=== PATIENT | male | born 1995 | race Caucasian/White ===

== ENCOUNTER 2025-03-15 18:36 | Emergency (ER) | payer OTHER, SELFPAY ==
[2025-03-15 18:36] VITALS: BP 128/80; PULSE 84; RESP 16; TEMP 36.4; O2SAT 99; BMI 31.8
--- NOTE | 2025-03-15 18:58 | EDS_ITS ---
HPI History of Present Illness HPI Narrative: Patient presents with pain in his right shoulder that began today while he was at work. Patient states he was lifting something over his head. Patient states it was heavy. Patient states he felt something pull in his right shoulder. Patient states that the pain is over the anterior aspect of the right shoulder/chest area. Patient describes his pain as aching. Patient states it is worse with certain movements. Patient states it is better with rest. Patient also admits to some numbness and tingling down his right arm into his pinky finger. Patient states that his entire hand becomes numb and tingly with certain movements. 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 Comment: Lifting Onset/Context/Timing Onset: Today Context: Sudden Onset Timing: Continuous Quality of Pain: Aching Location: Right shoulder Worsened by: Movement Relieved by: Rest Associated Symptoms Associated Symptoms: Positive for Parasthesia; Negative for Weakness or Loss of Funtion PFSH PFSH Medical History no medical history no medical history Home Medications ?Medication ?Instructions ?Recorded ?Last Taken ?Type naproxen 500 mg tablet 500 mg PO BID PRN #20 tabs 1 05/15/24 Unknown Rx Allergy/AdvReac Type Severity Reaction Status Date / Time No Known Allergies Allergy Verified 03/15/25 18:41 Surgical History no surgical history no surgical history Social History (Updated 03/15/25 @ 19:[address] Felix Campbell, DO) Smoking Status: Former smoker Electronic Cigarette Use: with nicotine ROS ROS ED Constitutional Constitutional ED: Denies chills or fever(s) Eyes Eyes: Denies blurry vision or change in vision ENT ENT ED: Denies rhinorrhea or sore throat Cardiovascular Cardiovascular: Denies chest pain or palpitations Respiratory/Chest Respiratory/Chest: Denies cough or dyspnea Gastrointestinal Gastrointestinal: Denies nausea or vomiting Genitourinary Genitourinary ED: Denies dysuria or hematuria Musculoskeletal Musculoskeletal: Denies back pain or neck pain Integumentary Denies abscess or rash Neurologic Neurologic: Reports paresthesias RUE; Denies headache(s) or weakness Allergic/Immunologic Allergic/Immunologic ED: Denies mouth swelling or urticaria EXAM Physical Exam Const Vital Signs: 03/15/25 18:36 Temperature 97.5 F L Temperature Source Temporal Pulse Rate 84 Respiratory Rate 16 Blood Pressure 128/80 H Blood Pressure Mean 96 Pulse Ox 99 Oxygen Delivery Method Room Air Positive well nourished and well developed General Appearance ED: well developed and NAD HEENT Reports moist mucous membranes normocephalic and atraumatic Neck full ROM and supple Neck Narrative: There is no tenderness over the midline cervical spine or paraspinal muscles. There is good range of motion. Spurling's test was negative. Extremity normal to inspection Extremity Narrative: There is tenderness to palpation over the anterior aspect of the right shoulder. There is no obvious deformity noted. Range of motion was slightly limited in all motions of the right shoulder secondary to pain. Strength is 5/5 in the radial, median, and ulnar areas. Sensation is intact to light touch in the radial, median, and ulnar areas. Radial pulses are equal bilaterally. Neuro oriented x3, CN's II-XII intact bilaterally, moves all extremities, no focal motor deficits and no sensory deficits noted Sensorium / Orientation: alert Motor Exam: strength 5/5 throughout Psych mental status grossly normal MDM MDM MDM Narrative Medical decision making narrative: Differential diagnosis includes dislocation, separation, muscle strain, and neuropraxia. X-rays of the right shoulder will be obtained to assess for separation and dislocation. Radiography Diagnostic Testing: X-rays of the right shoulder were obtained. There are 4 views. On my in dependent interpretation, there is no acute fracture or dislocation noted. There are some degenerative changes of the acromioclavicular joint. There is no separation noted. Radiologist also interpreted the x-rays and agrees. Treatment and Re-Evaluation Narrative: Patient was given a dose of Naprosyn here. Patient was advised of his findings. Patient was instructed use ice to the area. Patient was instructed to follow- up with his primary care physician in 5 to 7 days. Patient was instructed to return if worse in any way. Patient was given restrictions for work. Patient understood and was agreeable with the plan. All questions were answered. Discharge Plan Triage Chief Complaint: Upper Extremity Injury ED Provider: Felix Campbell Dx/Rx/DC Orders Clinical Impression: Right shoulder strain, Arm paresthesia, right Instructions: ED Shoulder Sprain, ED Paresthesia Prescriptions: New naproxen 500 mg tablet 500 mg PO BID PRN Qty: 20 0RF Stand Alone Forms: Work Status Form Primary Care Provider: Care Physician,No Primary Referrals: Care Physician,No Primary [Primary Care Provider, Medical] Clinic,NOW [Non-Staff, None] - 5-7 Days Print Language: Serbian Disposition Disposition: Home, Self Care
--- NOTE | 2025-03-15 19:05 | RAD_ITS ---
PROCEDURE: SHOULDER MIN 2 VIEWS 03/15/2025 REASON FOR EXAM: INJURY/PAIN TECHNIQUE: Procedure Code: RADSH Modality: DX Procedure: SHOULDER MIN 2 VIEWS Laterality: Right COMPARISON: None. FINDINGS: No acute fracture or dislocation. Preserved glenohumeral joint space. 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 No appreciable soft tissue swelling or unusual mineralization. RAD/Shoulder min 2 Views IMPRESSION: No acute fracture or dislocation. Mild AC joint arthrosis. Reading Location: [id number]
[2025-03-15 19:52] VITALS: BP 130/98; PULSE 78; RESP 16; TEMP 36.9; O2SAT 100
== END 2025-03-15 19:53 | disposition home or self-care (01) ==
PROVIDERS: Emergency Provider Emergency Medicine; Visit Provider Emergency Medicine
DX: S46.911A Strain of unspecified muscle, fascia and tendon at shoulder and upper arm level, right arm, initial encounter (principal); R20.2 Paresthesia of skin; Z87.891 Personal history of nicotine dependence; X58.XXXA Exposure to other specified factors, initial encounter
CPT/HCPCS: 73030; 99282

== ENCOUNTER 2025-03-16 18:07 | Emergency (ER) | payer OTHER, SELFPAY ==
[2025-03-16 18:08] VITALS: BP 124/79; PULSE 78; RESP 16; TEMP 37.1; O2SAT 98; BMI 31.7
[2025-03-16 20:07] VITALS: BP 120/73; PULSE 64; RESP 16
[2025-03-16 20:14] VITALS: BP 120/73; PULSE 64; RESP 16; TEMP 37.1; O2SAT 98
--- OUTSIDE RECORDS SUMMARY | 2025-03-16 20:15 | XMS RPT_ITS | CCD ---
Author Organization [facility] Inform ion Partnership [facility] Care Team Providers Care Site Safety Manager Name Role Phone Unavailable Primary Care Provider Unavailabl e Medications Completed/Discontinued Medications Medication Drug Class(es) Dates Sig (Normalized) Sig (Original) hydrocortisone 5 mg/ml topical cream (8 sources) Corticosteroid Start: 11-12-2022 hydrocortisone 0.5 % cream Apply to affected area twice daily. 56 g 0 11/12/2022 Active Start: 09-27-2020 hydrocortisone 1 % cream Apply to affected area twice daily. 20 g 0 09/27/2020 Active Comment on above: Apply to affected ar ea twice daily. ibuprofen 600 mg oral tablet (5 sources) Nonsteroidal Anti-inflammatory Drug Start: 08-31-2021 take 1 tablet by mouth every twelve hours as needed ibuprofen (MOTRIN) 600 mg tablet Take 1 tablet by mouth every 12 hours as needed for pain. 30 tablet 0 08/31/2021 Active Comment on above: Take 1 tablet by logan th every 12 hours as needed for pain. Problems Active Problems Problem Classification Problem Date Documented Da te Episodic/Chronic Other connective tissue disease (1 source) Peroneal tendinitis of right lower limb; Translations: [Peroneal tendinitis, right leg] Episodic Other non-traumatic joint disorders (1 source) Acute ankle pain; Translations: [Pain in right ankle and joints of right foot] Episodic Past or Other Problems Problem Classification Problem Date Documented Da te Episodic/Chronic Sprains and strains (9 sources) Low back strain; Translations: [Strain of muscle, fascia and tendon of lower back, initial encounter] Onset: 05-18-2014 05-18-2014 Episodic Results Test Name Value Interpretation Reference Range Facility [facility] 04-26-2024 [facility] HNO ID: [id number] Author: TOMASA OBANDO Tech Service: ? Author Type: Clinical Documentation Nurse Type: [facility] Filed: 04/26/2024 14:06 Note Text: Radiology Service Progress Note PATIENT NAME: Josselin Crockett DATE OF SERVICE: April 26, 2024 TIME: 2:06 PM PATIENT IDENTITY VERIFICATION COMPLETED USING TWO (2) IDENTIFIERS: Name and Date of confirmed by patient verbally. FALL SCREENING: Has the patient had 2 falls in the last year or 1 fall with injury or currently using an Ambulatory Assistive Device (Walker, Cane, Wheelchair, Crutches, etc.)? No PATIENT GENDER DATA: Male PATIENT RELEVANT IMPLANT DATA REVIEWED: Not Applicable PATIENT PRESENTS WITH AN IMPLANTABLE OR ATTACHED HVAC SERVICE TECH: No RADIOLOGY DEPARTMENT: General X-ray: Exam(s) Completed: Chest X-Ray PERIPHERAL IV DATA: Not applicable SIGNED BY: Todd Evans April 26, 2024 2:[address] [facility] CBC W Auto Differential pane l (Bld)on 04-26-2024 Basophils (Bld) [#/Vol] 0.03 10*3/uL Normal <0.11 [facility] Comment on above: Order Comment: Speci sonido Type: BLOOD SPECIMEN Ordering Facility: [facility] Address: [address] [place] [address] Performed By: #### 5 7021-8 #### [facility] CLIA [id number] [address] [place] [address] [place] Basophils/100 WBC (Bld) 0.5 % Normal [facility] Comment on above: Order Comment: Specdiamond head Type: BLOOD SPECIMEN Ordering Facility: [facility] Address: [address] [place] [address] Performed By: #### 5 7021-8 #### [facility] CLIA [id number] [address] [place] [address] [place] Differential cell count method Nom (Bld) Auto Normal [facility] Comment on above: Order Comment: Olimpiai sonido Type: BLOOD SPECIMEN Ordering Facility: [facility] Address: [address] [place] [address] Performed By: #### 5 7021-8 #### [facility] CLIA [id number] [address] [place] [address] [place] Eosinophils (Bld) [#/Vol] 0.03 10*3/uL Normal <0.46 [facility] Comment on above: Order Comment: Speci men Type: BLOOD SPECIMEN Ordering Facility: [facility] Address: [address] [place] [address] Performed By: #### 5 7021-8 #### [facility] CLIA [id number] [address] Eosinophils/100 WBC (Bld) 0.5 % Normal [facility] Comment on above: Order Comment: Speci men Type: BLOOD SPECIMEN Ordering Facility: [facility] Address: [address] [place] [address] Performed By: #### 5 7021-8 #### [facility] CLIA [id number] [address] Erythrocyte distribution width (RBC) [Ratio] 12.9 % Normal 11.5-15.0 [facility] Comment on above: Order Comment: Speci men Type: BLOOD SPECIMEN Ordering Facility: [facility] Address: [address] [place] [address] Performed By: #### 5 7021-8 #### [facility] CLIA [id number] [address] Hematocrit (Bld) [Volume fraction] 44.8 % Normal 39.0-51.0 [facility] Comment on above: Order Comment: Speci men Type: BLOOD SPECIMEN Ordering Facility: [facility] Address: [address] [place] [address] Performed By: #### 5 7021-8 #### [facility] CLIA [id number] [address] Hemoglobin (Bld) [Mass/Vol] 15.1 g/dL Normal 13.0-17.0 [facility] Comment on above: Order Comment: Speci men Type: BLOOD SPECIMEN Ordering Facility: [facility] Address: [address] [place] [address] Performed By: #### 5 7021-8 #### [facility] CLIA [id number] [address] [place] Immature granulocytes (Bld) [#/Vol] 10*3/uL Normal <0.10 [facility] Comment on above: Order Comment: Speci men Type: BLOOD SPECIMEN Ordering Facility: [facility] Address: [address] [place] [address] Performed By: #### 5 7021-8 #### [facility] CLIA [id number] [address] [place] Immature granulocytes/100 WBC (Bld) 0.2 % Normal [facility] Comment on above: Order Comment: Speci men Type: BLOOD SPECIMEN Ordering Facility: [facility] Address: [address] [place] [address] Performed By: #### 5 7021-8 #### [facility] CLIA [id number] [address] Lymphocytes (Bld) [#/Vol] 1.40 10*3/uL Normal 1.00-4.00 [facility] Comment on above: Order Comment: Speci men Type: BLOOD SPECIMEN Ordering Facility: [facility] Address: [address] [place] [address] Performed By: #### 5 7021-8 #### [facility] CLIA [id number] [address] Lymphocytes/100 WBC (Bld) 25.3 % Normal [facility] Comment on above: Order Comment: Speci men Type: BLOOD SPECIMEN Ordering Facility: [facility] Address: [address] [place] [address] Performed By: #### 5 7021-8 #### [facility] CLIA [id number] [address] MCH (RBC) [Entitic mass] 30.6 pg Normal 26.0-34.0 [facility] Comment on above: Order Comment: Speci men Type: BLOOD SPECIMEN Ordering Facility: [facility] Address: [address] [place] [address] Performed By: #### 5 7021-8 #### [facility] CLIA [id number] [address] [place] MCHC (RBC) [Mass/Vol] 33.7 g/dL Normal 30.5-36.0 [facility] Comment on above: Order Comment: Speci men Type: BLOOD SPECIMEN Ordering Facility: [facility] Address: [address] [place] [address] Performed By: #### 5 7021-8 #### [facility] CLIA [id number] [address] [place] [address] [place] MCV (RBC) [Entitic vol] 90.7 fL Normal 80.0-100.0 [facility] Comment on above: Order Comment: Speci men Type: BLOOD SPECIMEN Ordering Facility: [facility] Address: [address] [place] [address] Performed By: #### 5 7021-8 #### [facility] CLIA [id number] [address] [place] Monocytes (Bld) [#/Vol] 0.51 10*3/uL Normal <0.87 [facility] Comment on above: Order Comment: Speci men Type: BLOOD SPECIMEN Ordering Facility: [facility] Address: [address] [place] [address] Performed By: #### 5 7021-8 #### [facility] CLIA [id number] [address] Monocytes/100 WBC (Bld) 9.2 % Normal [facility] Comment on above: Order Comment: Speci men Type: BLOOD SPECIMEN Ordering Facility: [facility] Address: [address] [place] [address] Performed By: #### 5 7021-8 #### [facility] CLIA [id number] [address] [place] [address] [place] Neutrophils (Bld) [#/Vol] 3.55 10*3/uL Normal 1.45-7.50 [facility] Comment on above: Order Comment: Speci men Type: BLOOD SPECIMEN Ordering Facility: [facility] Address: [address] [place] [address] Performed By: #### 5 7021-8 #### [facility] CLIA [id number] [address] [place] Neutrophils/100 WBC (Bld) 64.3 % Normal [facility] Comment on above: Order Comment: Speci men Type: BLOOD SPECIMEN Ordering Facility: [facility] Address: [address] [place] [address] Performed By: #### 5 7021-8 #### [facility] CLIA [id number] [address] [place] Nucleated RBC (Bld) [#/Vol] 10*3/uL Normal <0.01 [facility] Comment on above: Order Comment: Speci men Type: BLOOD SPECIMEN Ordering Facility: [facility] Address: [address] [place] [address] Performed By: #### 5 7021-8 #### [facility] CLIA [id number] [address] Nucleated RBC/100 WBC (Bld) [Ratio] 0.0 /100 WBC Normal [facility] Comment on above: Order Comment: Speci men Type: BLOOD SPECIMEN Ordering Facility: [facility] Address: [address] [place] [address] Performed By: #### 5 7021-8 #### [facility] CLIA [id number] [address] [place] Platelet mean volume (Bld) [Entitic vol] 10.5 fL Normal 9.0-12.7 [facility] Comment on above: Order Comment: Speci men Type: BLOOD SPECIMEN Ordering Facility: [facility] Address: [address] [place] [address] Performed By: #### 5 7021-8 #### [facility] CLIA [id number] [address] [place] Platelets (Bld) [#/Vol] 208 10*3/uL Normal 150-400 [facility] Comment on above: Order Comment: Speci men Type: BLOOD SPECIMEN Ordering Facility: [facility] Address: [address] [place] [address] Performed By: #### 5 7021-8 #### [facility] CLIA [id number] [address] [place] [address] [place] [facility] [place] RBC (Bld) [#/Vol] 4.94 10*6/uL Normal 4.20-6.00 [facility] Comment on above: Order Comment: Speci men Type: BLOOD SPECIMEN Ordering Facility: [facility] Address: [address] [place] [address] Performed By: #### 5 7021-8 #### [facility] CLIA [id number] [address] STATES OF [facility] WBC (Bld) [#/Vol] 5.53 10*3/uL Normal 3.70-11.00 [facility] Comment on above: Order Comment: Speci men Type: BLOOD SPECIMEN Ordering Facility: [facility] Address: [address] [place] [address] Performed By: #### 5 7021-8 #### [facility] CLIA [id number] [address] OF [facility] Comprehensive metabolic 2000 panelon 04-26-2024 Albumin [Mass/Vol] 4.4 g/dL Normal 3.9-4.9 [facility] Comment on above: Order Comment: Speci men Type: BLOOD SPECIMEN Ordering Facility: [facility] Address: [address] [place] [address] Performed By: #### 2 4323-8, [id number] #### [facility] CLIA [id number] [address] [place] ALP [Catalytic activity/Vol] 70 U/L Normal 38-113 [facility] Comment on above: Order Comment: Speci men Type: BLOOD SPECIMEN Ordering Facility: [facility] Address: [address] [place] [address] Performed By: #### 2 4323-8, [id number] #### [facility] CLIA [id number] [address] ALT [Catalytic activity/Vol] 13 U/L Normal 10-54 [facility] Comment on above: Order Comment: Speci men Type: BLOOD SPECIMEN Ordering Facility: [facility] Address: [facility] [place] [address] Performed By: #### 2 4323-8, [id number] #### [facility] CLIA [id number] [address] [place] [address] [place] Anion gap [Moles/Vol] 6 mmol/L Low 8-15 [facility] Comment on above: Order Comment: Speci men Type: BLOOD SPECIMEN Ordering Facility: [facility] Address: [address] [place] [address] Performed By: #### 2 4323-8, [id number] #### [facility] CLIA [id number] [address] [place] [address] [place] AST [Catalytic activity/Vol] 15 U/L Normal 14-40 [facility] Comment on above: Order Comment: Speci men Type: BLOOD SPECIMEN Ordering Facility: [facility] Address: [address] [place] [address] Performed By: #### 2 4323-8, [id number] #### [facility] CLIA [id number] [address] [place] [address] [place] Bilirubin [Mass/Vol] 0.5 mg/dL Normal 0.2-1.3 [facility] Comment on above: Order Comment: Speci men Type: BLOOD SPECIMEN Ordering Facility: [facility] Address: [address] [place] [address] Performed By: #### 2 4323-8, [id number] #### [facility] CLIA [id number] [address] [place] Calcium [Mass/Vol] 9.2 mg/dL Normal 8.5-10.2 [facility] Comment on above: Order Comment: Speci men Type: BLOOD SPECIMEN Ordering Facility: [facility] Address: [address] [place] [address] Performed By: #### 2 4323-8, [id number] #### [facility] CLIA [id number] [address] [place] [address] [place] Chloride [Moles/Vol] 101 mmol/L Normal 98-107 [facility] Comment on above: Order Comment: Speci men Type: BLOOD SPECIMEN Ordering Facility: [facility] Address: [address] [place] [address] Performed By: #### 2 4323-8, [id number] #### [facility] CLIA [id number] [address] [place] [address] [place] CO2 [Moles/Vol] 29 mmol/L Normal 22-30 [facility] Comment on above: Order Comment: Radha head Type: BLOOD SPECIMEN Ordering Facility: [facility] Address: [address] [place] [address] Performed By: #### 2 4323-8, [id number] #### [facility] CLIA [id number] [address] [place] [address] [place] Creatinine [Mass/Vol] 0.75 mg/dL Normal 0.73-1.22 [facility] Comment on above: Order Comment: Olimpiai men Type: BLOOD SPECIMEN Ordering Facility: [facility] Address: [address] [place] [address] Performed By: #### 2 4323-8, [id number] #### [facility] CLIA [id number] [address] Creatinine and Glomerular filtration rate.predicted panel (S/P/Bld) 125 mL/min/1.73m??? Normal >=60 [facility] Comment on above: Order Comment: Speci men Type: BLOOD SPECIMEN Ordering Facility: [facility] Address: [address] [place] [address] Result Comment: Fouzia mated Glomerular Filtration Rate (eGFR) is calculated using the 2020 CKD-EPI creatinine equation. This equation utilizes serum creatinine, sex, and age as parameters. The creatinine assay has traceable calibration to isotope dilution-mass spectrometry. Refer to KDIGO guidelines for clinical interpretation. In patients with unstable renal function, e.g. those with acute kidney injury, the eGFR may not accurately reflect actual GFR. Performed By: #### 2 4323-8, [id number] #### [facility] CLIA [id number] [address] [place] Glucose [Mass/Vol] 99 mg/dL Normal 74-99 [facility] Comment on above: Order Comment: Rahda head Type: BLOOD SPECIMEN Ordering Facility: [facility] Address: [address] [place] [address] Result Comment: The [place] [employer] (ADA) provides guidance for cutoff values for fasting glucose and random glucose. The ADA defines fasting as no caloric intake for at least 8 hours. Fasting plasma glucose results between 100 to 125 mg/dL indicate increased risk for diabetes (prediabetes). Fasting plasma glucose results greater than or equal to 126 mg/dL meet the criteria for diagnosis of diabetes. In the absence of unequivocal hyperglycemia, results should be confirmed by repeat testing. In a patient with classic symptoms of hyperglycemia or hyperglycemic crisis, random plasma glucose results greater than or equal to 200 mg/dL meet the criteria for diagnosis of diabetes. Reference: Standards of Medical Care in Diabetes 2016, [place] [employer]. Diabetes Care. 2016.39(Suppl 1). Performed By: #### 2 4323-8, [id number] #### [facility] CLIA [id number] [address] [place] [address] [place] Potassium [Moles/Vol] 4.6 mmol/L Normal 3.7-5.1 [facility] Comment on above: Order Comment: Radha head Type: BLOOD SPECIMEN Ordering Facility: [facility] Address: [address] [place] [address] Performed By: #### 2 4323-8, [id number] #### [facility] CLIA [id number] [address] [place] [address] [place] Protein [Mass/Vol] 7.0 g/dL Normal 6.3-8.0 [facility] Comment on above: Order Comment: Radha head Type: BLOOD SPECIMEN Ordering Facility: [facility] Address: [address] [place] [address] Performed By: #### 2 4323-8, [id number] #### [facility] CLIA [id number] [address] [place] [address] [place] Sodium [Moles/Vol] 136 mmol/L Normal 136-144 [facility] Comment on above: Order Comment: Radha head Type: BLOOD SPECIMEN Ordering Facility: [facility] Address: [address] [place] [address] Performed By: #### 2 4323-8, [id number] #### [facility] CLIA [id number] [address] [place] [address] [place] Urea nitrogen [Mass/Vol] 10 mg/dL Normal 9-24 [facility] Comment on above: Order Comment: Specdiamond head Type: BLOOD SPECIMEN Ordering Facility: [facility] Address: [address] [place] [address] Performed By: #### 2 4323-8, [id number] #### [facility] CLIA [id number] [address] D dimer FEU PPP-mCncon 04-26 Fibrin D-dimer FEU (PPP) [Mass/Vol] <190 Normal <500 [facility] Comment on above: Order Comment: Specdiamond head Type: BLOOD SPECIMEN Ordering Facility: [facility] Address: [address] [place] [address] Performed By: #### 4 8065-7 #### [facility] CLIA [id number] [address] ED NOTEon 04-26-2024 ED NOTE HNO ID: [id number] Author: RAGINI HENSLEY RN Service: ? Author Type: Registered Nurse Type: ED Notes Filed: 04/26/2024 15:04 Note Text: pt given dc instructions and follow up care he verbalized understanding. Normal [facility] ED PROV NOTEon 04-26-2024 ED PROV NOTE HNO ID: [id number] Author: GEMA RANKIN MD Service: ? Author Type: Physician Type: ED Provider Notes Filed: 04/26/2024 14:52 Note Text: ED Provider Note Patient Name: Josselin Crockett : 1995 SERVICE DATE: 04/26/24 History Patient presents with: Chest Pain: for the past 4 days Patient is a 28-year-old male coming in with chest pain. Is been going on for the last 4 days. He describes it is coming and going mainly in his mid chest to left chest. He denies it worse with deep inspiration. He denies any fevers or chills or cough. He is never had anything like this before. Denies any leg swelling or recent travel. Denies any cardiac history. No past medical history on file. No past surgical history on file. FAMILY HISTORY Problem Relation Age of Onset other (Iron Deficiency Anemia [Other]) Mother Social History Tobacco Use Smoking status: Former Current packs/day: 1.00 Types: Cigarettes Smokeless tobacco: Never Vaping Use Vaping status: current everyday user Substances: Nicotine Substance and Sexual Activity Alcohol use: Yes Comment: occasionaly Drug use: No Sexual activity: Not on file ALLERGIES No Known Allergies Review of Systems Constitutional: Negative for fever. Respiratory: Negative for shortness of breath. Cardiovascular: Positive for chest pain. Gastrointestinal: Negative for vomiting. All other systems reviewed and are negative. Physical Exam Vitals [04/26/24 1240] BP Pulse Temp Temp src Resp SpO2 Weight Height 135/77 67 36.6 ?C (97.8 ?F) Temporal 18 97 % 106.6 kg (235 lb) -- Physical Exam Vitals reviewed. Constitutional: General: He is not in acute distress. Appearance: He is not ill-appearing. HENT: Head: Normocephalic. Mouth/Throat: Mouth: Mucous membranes are moist. Cardiovascular: Rate and Rhythm: Normal rate and regular rhythm. Pulmonary: Effort: Pulmonary effort is normal. Breath sounds: Normal breath sounds. Abdominal: Palpations: Abdomen is soft. Tenderness: There is no abdominal tenderness. There is no guarding or rebound. Musculoskeletal: General: No swelling or tenderness. Cervical back: Neck supple. Skin: General: Skin is warm. Neurological: General: No focal deficit present. Mental Status: He is alert. Psychiatric: Mood and Affect: Mood normal. Diagnostic Testing ED Labs Ordered and Reviewed COMPREHENSIVE METABOLIC PANEL - Abnormal; Notable for the following components: Result Value Ref Range Anion Gap 6 (*) 8 - 15 mmol/L All other components within normal limits HIGH SENSITIVITY TROPONIN T (INITIAL) - Normal D-DIMER - Normal Narrative: 500 ng/mL FEU is the D Dimer cutoff to exclude DVT (deep vein thrombosis) and PE (pulmonary embolism) in patients with a low pre test probability. Supplemental Comment: In patients over 50 years with a low pre test probability for DVT and/or PE, an age adjusted D dimer cutoff can be calculated as [age x 10] ng/mL FEU. For example, a patient of 88 years would have an age adjusted D dimer cutoff of 880 ng/mL FEU. For patients with a suspected DVT, a D dimer level below 500 ng/mL FEU has a negative predictive value of >98.9%, a sensitivity of >96.9% and a specificity of >35.7%. For patients with a suspected PE, a D dimer level below 500 ng/mL FEU has a negative predictive value of >98.5%, and a sensitivity of >96.5% and a specificity of >38.8%. Reference: Fabian M, et al. ADIN 2014 311:1117 and Raleigh Mathews N et al. Kelsi Int Med 2016 165:253. COMPLETE BLOOD COUNT AND DIFFERENTIAL HIGH SENSITIVITY TROPONIN T (SECOND) Procedures ED Course / Clinical Impression Clinical Impressions as of 04/26/24 1451 Chest pain, unspecified type Chest wall pain MDM / Disposition / Plan EKG shows normal sinus rhythm rate of [address]. Patient had basic labs including 2 high-sensitivity troponins are within normal limits. 38 potassium are normal. White blood cell count hemoglobin platelets are normal. D-dimer is less than 190. X-ray shows no acute radiographic abnormality. At this point I am comfortable the patient being discharged home. Unclear cause of chest pain however vital signs are stable and labs and imaging are all within normal limits and this point will be discharged home. Is advised to follow with primary care and return with any worsening symptoms or concerns Differential Diagnoses - Chest pain NOS - PE Less likely because: D-dimer negative - ACS Less likely because: no evidence of ACS based on cardiac biomarkers and EKG without ischemia - Pneumothorax Less likely because: bilateral breath sounds and CXR without PTX - Pneumonia Less likely because: lungs clear to auscultation and CXR without infiltrate Additional complaint based differentials considered: pulmonary embolism, ACS, pneumothorax, pneumonia Disposition The patient was discharged. Counseled patient regardin (more content not included)... Normal [facility] EKGon 04-26-2024 Electrocardiogram Ventricular Rate : 6 8 BPM Atrial Rate : 68 BPM P-R Interval : 114 ms QRS Duration : 98 ms Q-T Interval : 364 ms QTC Calculation(Bazett) : 387 ms Calculated P [place] : 66 degrees Calculated R [place] : -6 degrees Calculated T [place] : 6 degrees SINUS RHYTHM WITH MARKED SINUS ARRHYTHMIA OTHERWISE NORMAL ECG NO STEMI Confirmed by GEMA RANKIN MD ([id number]), scientific editor ANGELA MCELROY ([id number]) on 05/12/2024 8:53:25 AM NAME : JOSSELIN CROCKETT PID : [id number] : 1995 Gender : Male Race : ORD : Procedure Date : Apr 26 2024 12:40:16 Edit Date : May 12 2024 08:53:31 Diagnosis: SINUS RHYTHM WITH MARKED SINUS ARRHYTHMIA OTHERWISE NORMAL ECG NO STEMI Confirmed by GEMA RANKIN MD ([id number]), scientific editor ANGELA MCELROY ([id number]) on 05/12/2024 8:53:25 AM Test Reason : Location : 1 : ER ED Overread By : GEMA RANKIN MD Edited By : ANGELA MCELROY Referred By : , Acquired by : TK, Normal [facility] HIGH SENSITIVITY TROPONIN T (INITIAL)on 04-26-2024 Troponin T.cardiac High sensitivity method [Mass/Vol] <6 Normal <12 [facility] Comment on above: Order Comment: Radha head Type: BLOOD SPECIMEN Ordering Facility: [facility] Address: [address] [place] [address] Performed By: #### 2 [id number], [id number] #### [facility] CLIA [id number] [address] HIGH SENSITIVITY TROPONIN T (SECOND)on 04-26-2024 Troponin T.cardiac High sensitivity method [Mass/Vol] 7 ng/L Normal <12 [facility] Comment on above: Order Comment: Radha head Type: BLOOD SPECIMEN Ordering Facility: [facility] Address: [address] [place] [address] Performed By: #### L [id number] #### [facility] CLIA [id number] [address] XR CHEST 2V FRONTAL/LATon XR CHEST 2V FRONTAL/LAT * * *Final Report* * * DATE OF EXAM: Apr 26 2024 2:05PM MDX [id number] - XR CHEST 2V FRONTAL/LAT / PROCEDURE REASON: Chest Pain * * * * Physician Interpretation * * * * EXAMINATION: CHEST RADIOGRAPH (2 VIEW FRONTAL and LATERAL) CLINICAL HISTORY: Chest Pain MQ: [id number] EXAM DATE/TIME: 04/26/2024 2:05 PM COMPARISON: 05/13/2020 RESULT: Lines, tubes, and devices: None. Lungs and pleura: No consolidation. No lung mass. No pleural effusion. No pneumothorax. Cardiomediastinal silhouette: Normal cardiomediastinal silhouette. Bones and soft tissues: Unremarkable. IMPRESSION: No acute radiographic abnormality. Industrial Service Technician: YOLANDA Transcribe Date/Time: Apr 26 2024 2:07P Dictated by : TEGAN MICHELLE MD This examination was interpreted and the report reviewed and electronically signed by: TEGAN MICHELLE MD on Apr 26 2024 2:07PM EST [id number] [facility] 09-09-2021 [facility] Telephone (ORMDNA) JOSSELIN CROCKETT ([id number]) 1995 M Date Time Provider Department 09/09/21 BRANDEN BERNARD During your visit today, we recorded the following information about you: Savannah Marcum 09/09/2021 10:40 AM Signed Patient is calling stating he is having more pain, swelling has gone down but is having a radiating pain from his ankle into his knee (going up his leg). He has been icing it and using the boot, but when he sleeps at night the pain radiating into his knee is very bad and waking him up throughout the night. Please advise the next step. Josselin can be reached at . Thanks! Monet Vann RN 09/09/2021 10:41 AM Signed Per OV 09/03/21, MRI would be recommended if pt was still presenting with any issues Can this be ordered? Monet Vann RN 09/09/2021 10:50 AM Signed Done Branden Bernard, DO PSS Please call pt and advised MRI is ordered and help with appt Savannah Marcum 09/09/2021 11:15 AM Signed MRI and follow up appointment have been scheduled for patient. Thank you! Allergies As of Date: 09/09/2021 (No Known Allergies) Date Reviewed: 09/03/2021 Reviewed by: Branden Bernard DO - Fully Assessed Reason for Visit: Patient Update [1234] Prescriptions as of 09/09/2021 - ibuprofen (MOTRIN) 600 mg tablet Take 1 tablet by mouth every 12 hours as needed for pain. - hydrocortisone 1 % cream Apply to affected area twice daily. Meds Comments as of 10/06/2019: Pt sts no daily medications Problem List As Of Date 09/09/2021 Noted Resolved Lumbar strain [S39.012A] 05/18/2014 Encounter Status:Closed by SAVANNAH MARCUM on 09/09/21 [facility] CNCOon 09-03-2021 CNCO Letter Text [facility] CNOVon 09-03-2021 CNOV Office Visit (CORNELIUSNA ) STEPHANIEHUMBERTOJOSSELIN Rita ([id number]) 1995 M Date Time Provider Department 09/03/21 11:00 AM BRANDEN EBRNARD During your visit today, we recorded the following information about you: Branden Bernard DO 09/10/2021 12:39 PM Signed Reason for Visit/Chief Complaint Josselin Crockett is a 25 year old male who presents today for a new evaluation of following complaint: Patient presents with: Right Ankle - New, Pain History of Present Illness: PAIN EVALUATION 09/03/2021 1116 Pain Level: 6 Pain Location: Ankle-Right Description: Aching;Dull;Radiating; Throbbing;Other: See comment radiates to knee Duration Amount of Time: 3 Duration Units: Days Frequency: Continuous Intervention/Comfort measure: Relaxation;Reposition; Cold;Medication;Other: See comment ibuprofen, jaquan wrap HPI: Josselin Crockett is a 25 year old male presenting today with right ankle pain. Patient rolled his ankle 3 days ago playing basketball , went to er and they place in ankle brace unable to wear with shoe, and is having continued pain and swelling. Pain history is noted as above. Denies calf pain, numbness, tingling, fever, chills or other constitutional symptoms. Works in [employer]. Has sprained injury in the past, but didn't get looked at until this past weekend. Previous Treatments: Ice: Yes Heat: No Brace: No NSAIDs: Yes, ibuprofen Injections: No Surgeries: No Physical Therapy: No Review of Systems: Patient did not have, and does not currently have, any weight loss, malaise, fever, chills, headache, chest pain, chest pressure, palpitations, cough, shortness of breath, orthopnea, paroxsymal nocturnal dyspnea, nausea, vomiting, diarrhea, constipation, melena, hematochezia, urinary difficulties, prolonged bleeding, easily bruising, heat or cold intolerance, new onset joint pain or swelling, new onset extremity weakness or numbness, new onset auditory or visual disturbances, lightheadedness, dizziness, partial loss of consciousness or full loss of consciousness. Current Outpatient Medications on File Prior to Visit Medication Sig - ibuprofen (MOTRIN) 600 mg tablet Take 1 tablet by mouth every 12 hours as needed for pain. - hydrocortisone 1 % cream Apply to affected area twice daily. No current facility-administered medications on file prior to visit. ALLERGIES No Known Allergies Physical Exam: Vitals: There were no vitals taken for this visit. Psych: Pleasant, good affect and mood General Appearance: Well appearing, alert, in no acute distress, well-hydrated, well nourished.. Skin: Skin color, texture, turgor normal, no suspicious rashes or lesions. Peripheral Pulses: Normal. Neurologic: Gait normal. Reflexes normal and symmetric. Sensation grossly intact.. Lymph Nodes: No cervical lymphadenopathy, No supraclavicular lymphadenopathy, No axillary lymphadenopathy. and No inguinal lymphadenopathy.. Respiratory: No recent pulmonary infection, hemoptysis, chronic cough, or shortness of breath at rest Rheumatologic: Joint deformities: right ankle pain Right Ankle Exam Tenderness The patient is experiencing tenderness in the ATF. Swelling: moderate Range of Motion Dorsiflexion: normal Plantar flexion: normal Eversion: normal Inversion: normal Muscle Strength Dorsiflexion: 5/5 Plantar flexion: 5/5 Anterior tibial: 5/5 Posterior tibial: 5/5 Gastrocsoleus: 5/5 Peroneal muscle: 5/5 Tests Anterior drawer: 2+ Varus tilt: negative Other Erythema: absent Sensation: normal Pulse: present Left Ankle Exam Left ankle exam is normal. Tenderness The patient is experiencing no tenderness. Range of Motion The patient has normal left ankle ROM. Dorsiflexion: normal Plantar flexion: normal Eversion: normal Inversion: normal Muscle Strength Dorsiflexion: 5/5 Plantar flexion: 5/5 Anterior tibial: 5/5 Posterior tibial: 5/5 Gastrocsoleus: 5/5 Peroneal muscle: 5/5 Tests Anterior drawer: negative Varus tilt: negative Other Erythema: absent Sensation: normal Pulse: present Imaging: Last XR Ankle - Impression Only XR ANKLE GENERAL 3V AP/LAT/OBL RIGHT Exam End: 08/31/2021 9:48 PM (Final result) Impression: IMPRESSION: No acute osseous abnormality identified Soft tissue swelling Industrial Service Technician: YOLANDA ... Complete Results Assessment and Plan: Impression: No diagnosis found. Plan: Elevate, nsaids, compression Apply ice Cam boot PT Follow up in 2 weeks If still having issues would order MRI Patient aware and in agreement of plan. All questions answered. Out of work note for 2 weeks and reeval at that time Today, in detail, through a thorough evaluation, we discussed possible etiologies of pain and our plans for further diagnostic and therapeutic interventions. We discussed strategies for decreasing pain (more content not included)... Normal [facility] No Panel Informationon 09-03 [facility] ED NOTEon 09-01-2021 ED NOTE HNO ID: [id number] Author: Ree Fernandez RN Service: Emergency Medicine Author Type: Registered Nurse Type: ED Notes Filed: 08/31/2021 10:11 PM Note Text: Pt is A/Ox3, per Sharath WYANE pt condition is improved and stable for discharge. Pt speech is clear and coherent with pt speaking in full sentences. Pt respirations are even, non labored and no use of accessory muscles noted. Verbal and written D/c instructions reviewed with pt. Pt verbalized understanding of diagnosis, treatment, importance of follow-up with PCP. Pt instructed to return to ED as needed for persistent or worsening symptoms or any new concerns. Pt is leaving ambulatory with crutches and air cast,a steady gait and all belongings with him accompanied by his brother. Normal [facility] ED NOTEon 08-31-2021 ED NOTE HNO ID: [id number] Author: Jennifer Ortiz RN Service: Emergency Medicine Author Type: Registered Nurse Type: ED Notes Filed: 08/31/2021 9:14 PM Note Text: Pt states that he rolled his right ankle 1 hour ago while playing basketball. Swelling noted. Pt states that the pain is shooting up his leg. Ice given but states it makes the pain worse. Pt did not take anything for pain HIV COUNSELOR Normal [facility] ED PROV NOTEon 08-31-2021 ED PROV NOTE HNO ID: [id number] Author: Sharath Gee PA-C Service: Emergency Medicine Author Type: Physician Child Therapist Type: ED Provider Notes Filed: 08/31/2021 10:07 PM Note Text: [facility] EM[facility] DEPARTMENT ENCOUnter Pt Name: Josselin Crockett Birthdate 1995 Date of evaluation: 08/31/2021 Provider: Sharath Gee MS, PA-C CHIEF COMPLAINT chief complaint Right ankle injury HISTORY OF PRESENT ILLNESS (Location/Symptom, Timing/Onset, Context/Setting, Quality, Duration, Modifying Factors, Severity) Note limiting factors. HPI Josselin Crockett is a 25 year old male who presents to the emergency department with complaint of right ankle injury. He says somebody stepped on his foot and the rolled his ankle, shows me the lateral aspect of the right ankle where there is soft tissue swelling. He is focally tender there but also does radiate proximally with use, better with rest. Pain scale 5 out of 10. Describes a sharp. He reports having other previous ankle injuries although does not believe he is ever had a fracture but not sure. No relevant personal or family past medical history. The patient is a smoker. I have reviewed the patient's personal and family past medical history as well as the nurse's notes and I agree. Personal history and family past medical history as listed in this chart. I have reviewed the patient's vitals and agree. REVIEW OF SYSTEMS (2+ for level 4; 10+ for level 5) Review of Systems This patient's personal and family past medical history as stated in HPI and otherwise unremarkable. ROS as stated in HPI otherwise unremarkable, a total of 10 systems reviewed. PAST MEDICAL HISTORY History reviewed. No pertinent past medical history. SURGICAL HISTORY History reviewed. No pertinent surgical history. CURRENT MEDICATIONS Previous Medications HYDROCORTISONE 1 % CREAM Apply to affected area twice daily. ALLERGIES Patient has no known allergies. FAMILY HISTORY FAMILY HISTORY Problem Relation Age of Onset - other (Iron Deficiency Anemia [Other]) Mother SOCIAL HISTORY Social History Tobacco Use - Smoking status: Current Every Day Smoker Packs/day: 1.00 Types: Cigarettes - Smokeless tobacco: Never Used Vaping Use - Vaping Use: Never used Substance Use Topics - Alcohol use: Yes Comment: occasionaly - Drug use: No SCREENINGS PHYSICAL EXAM (up to 7 for level 4, 8 or more for level 5) Physical Exam Constitutional: Patient is AAO x3, appears to be well-nourished and hydrated. Psych: Appropriate mood and affect for chief complaint. Patient is calm and pleasant. Integumentary: Skin intact, no erythema, is a hint of ecchymosis at the right lateral malleolus, skin is warm and dry. Neuro: Patient has sensation over the affected area as well as distally, no gross sensory or motor deficit. Vascular: Good dorsal pedis and posterior tibial pulses bilaterally. Respiratory: No tachypnea. Patient speaks in full sentences. Musculoskeletal: He has bony tenderness at the right lateral malleolus. No pain to the proximal tib-fib areas or to the right foot, no pain to the right medial malleolus. He is able to dorsi and plantarflex the toes and foot of the right lower extremity. Extremities: Skin is warm and dry. Soft tissue swelling at the right lateral malleolus. HENT: Head appears atraumatic and normocephalic. Trachea midline. Eyes: Conjunctivae are clear. Full extraocular eye movements intact. ? LABS: Labs Reviewed - No data to display All other labs were within normal range or not returned as of this dictation. EMERGENCY DEPARTMENT COURSE: Vitals: 08/31/21 2114 BP: 132/65 Pulse: 86 Resp: 20 Temp: 37.2 ?C (98.9 ?F) TempSrc: Oral SpO2: 99% Weight: 93 kg (205 lb) Medications ibuprofen 600 mg tab(s) (MOTRIN) (has no administration in time range) MDM The patient came here with complaint of a right ankle injury that occurred just before arrival. Initial exam suggests that the patient has right ankle pain and swelling laterally. Imaging shows: XR ANKLE GENERAL 3V AP/LAT/OBL RIGHT Result Date: 08/31/2021 * * *Final Report* * * DATE OF EXAM: Aug 31 2021 9:48PM [id number] - XR ANKLE 3V AP/LAT/OBL RT / PROCEDURE REASON: Ankle pain, initial exam * * * * Physician Interpretation * * * * EXAMINATION: XR ANKLE 3V AP/LAT/OBL RT CLINICAL HISTORY: Ankle pain, initial exam Technique: XR ANKLE 3V AP/LAT/OBL RT -- RIGHT with 3 views on 3 images Comparison: 12/08/2012 RESULT: No acute fracture or osseous lesions are identified. There are well-corticated ossific densities distal to the tip of the lateral malleolus which may represent sequelae of remote injury versus accessory ossicles. Ankle mortise is preserved. There is marked soft tissue swelling overlying the lateral malleolus. IMPRESSION: No acute osseous abnormality identified Soft tissue swelling Ferrer (more content not included)... Normal [facility] XR ANKLE 3V AP/LAT/OBL RTon 08-31-2021 XR ANKLE 3V AP/LAT/OBL RT * * *Final Report* * * DATE OF EXAM: Aug 31 2021 9:48PM [id number] - XR ANKLE 3V AP/LAT/OBL RT / PROCEDURE REASON: Ankle pain, initial exam * * * * Physician Interpretation * * * * EXAMINATION: XR ANKLE 3V AP/LAT/OBL RT CLINICAL HISTORY: Ankle pain, initial exam Technique: XR ANKLE 3V AP/LAT/OBL RT -- RIGHT with 3 views on 3 images Comparison: 12/08/2012 RESULT: No acute fracture or osseous lesions are identified. There are well-corticated ossific densities distal to the tip of the lateral malleolus which may represent sequelae of remote injury versus accessory ossicles. Ankle mortise is preserved. There is marked soft tissue swelling overlying the lateral malleolus. IMPRESSION: No acute osseous abnormality identified Soft tissue swelling Industrial Service Technician: [facility] Transcribe Date/Time: Aug 31 2021 9:50P Dictated by : ANGELA DUTTON MD This examination was interpreted and the report reviewed and electronically signed by: ANGELA DUTTON MD on Aug 31 2021 9:52PM EST [id number] Normal [facility] ED NOTEon 04-03-2021 ED NOTE HNO ID: [id number] Author: Sofi Goodson RRT Service: Respiratory Therapy Author Type: Registered Resp Therapist Type: ED Notes Filed: 04/03/2021 2:35 PM Note Text: Pt tripped and fell off his porch last night and landed on his left shoulder and heard a pop. Pt does not have full mobility in shoulder at this time. Normal [facility] ED PROV NOTEon 04-03-2021 ED PROV NOTE HNO ID: [id number] Author: Edelmira Banks PA-C Service: Emergency Medicine Author Type: Physician Child Therapist Type: ED Provider Notes Filed: 04/03/2021 5:53 PM Note Text: ED Provider Note Patient Name: Josselin Crockett SERVICE DATE: 04/03/21 History Patient presents with: Pain (Shoulder Pain): Left Fall 25 year old male presents to ED c/o left arm pain s/p fall. Pt states last night he tripped and fell off his porch, landing on his left shoulder. Pt heard a pop. Woke up today with worsening pain and difficulty moving his shoulder. Also noticed discomfort to his lower arm but denies injuring that. Pt is right hand dominant. History provided by: Patient and medical records History reviewed. No pertinent past medical history. History reviewed. No pertinent surgical history. FAMILY HISTORY Problem Relation Age of Onset - other (Iron Deficiency Anemia [Other]) Mother Social History Tobacco Use - Smoking status: Current Every Day Smoker Packs/day: 1.00 Types: Cigarettes - Smokeless tobacco: Never Used Vaping Use - Vaping Use: Never used Substance and Sexual Activity - Alcohol use: Yes Comment: occasionaly - Drug use: No - Sexual activity: Not on file ALLERGIES No Known Allergies Review of Systems Constitutional: Negative for chills and fever. HENT: Negative. Respiratory: Negative. Cardiovascular: Negative. Gastrointestinal: Negative. Musculoskeletal: Positive for arthralgias and myalgias. Skin: Negative. Neurological: Negative. Hematological: Negative. Psychiatric/Behavioral : Negative. Physical Exam Vitals [04/03/21 1431] BP Pulse Temp Temp src Resp SpO2 Weight Height 128/64 79 36.8 ?C (98.2 ?F) Temporal 18 100 % 91.6 kg (202 lb) -- Physical Exam Vitals and nursing note reviewed. Constitutional: Appearance: Normal appearance. HENT: Head: Normocephalic and atraumatic. Mouth/Throat: Mouth: Mucous membranes are moist. Eyes: Extraocular Movements: Extraocular movements intact. Conjunctiva/sclera: Conjunctivae normal. Pupils: Pupils are equal, round, and reactive to light. Cardiovascular: Rate and Rhythm: Normal rate. Pulses: Normal pulses. Pulmonary: Effort: Pulmonary effort is normal. Musculoskeletal: Cervical back: Normal range of motion. Comments: Tenderness left anterior shoulder. Limited extension/abduction secondary to pain. Elbow nontender. Flexion intact, pain to left shoulder. Mild tenderness. Distal left forearm. Full ROM left wrist. Skin: General: Skin is warm and dry. Capillary Refill: Capillary refill takes less than 2 seconds. Neurological: Mental Status: He is alert and oriented to person, place, and time. Sensory: No sensory deficit. Motor: No weakness. Gait: Gait normal. Diagnostic Testing ED Labs Ordered and Reviewed - No data to display XR SHOULDER GENERAL 3V OR MORE AP/TRUE AP/OTHER LEFT Final Result XR FOREARM GENERAL 2V AP/LAT LEFT Final Result Procedures ED Course / Clinical Impression Clinical Impressions as of 04/03/21 1750 Fall, initial encounter Strain of left shoulder, initial encounter MDM / Disposition / Plan Course: 25 year old male presents c/o left shoulder pain s/p fall. Vital signs were reviewed. Triage records were reviewed. Medical records were reviewed. Nursing notes were reviewed and incorporated. Pt tripped and fell yesterday, landing on left shoulder and hearing a pop. Increased pain today. Tender on exam, neurovascularly intact. XR left shoulder and forearm shows no bony abnormality. Discussed with pt. Concern for muscle strain, sling given. Counseled regarding rice, supportive care. Follow up with orthopedics if no improvement. Pt understands and is in agreement with the plan. The patient was DISCHARGED: Counseled patient regarding suspected diagnosis AND need for follow-up. Discharged home with verbal and written instructions. They were instructed to return as needed for persistent or worsening symptoms or any new concerns. Condition at time of disposition: stable SIGNATURE: JEFF Augustin PA-C 04/03/21 1753 Normal [facility] XR FOREARM 2V AP/LAT LTon XR FOREARM 2V AP/LAT LT * * *Final Report* * * DATE OF EXAM: Apr 03 2021 3:21PM [id number] - XR FOREARM 2V AP/LAT LT / PROCEDURE REASON: Forearm pain, traumatic * * * * Physician Interpretation * * * * Indication: Left forearm pain Comparison: None 2 views of the left forearm are obtained. There is normal architecture and mineralization of the bones. There is no acute fracture or dislocation. Joint spaces are maintained. Impression: 1. No acute fracture or dislocation. Industrial Service Technician: [facility] Transcribe Date/Time: Apr 03 2021 3:28P Dictated by : VIDAL SCHWARTZ MD This examination was interpreted and the report reviewed and electronically signed by: VIDAL SCHWARTZ MD on Apr 03 2021 3:28PM EST [id number] Normal [facility] XR SHLDR >/=3V AP/ALMAS AP/OTH R LTon 04-03-2021 XR SHLDR >/=3V AP/ALMAS AP/OTHR LT * * *Final Report* * * DATE OF EXAM: Apr 03 2021 3:21PM [id number] - XR SHLDR >/=3V AP/ALMAS AP/OTHR LT / PROCEDURE REASON: Shoulder pain, initial exam * * * * Physician Interpretation * * * * Indication: Left shoulder pain Comparison: None 4 views of the left shoulder are obtained. There is normal architecture and mineralization of the bones. There is no acute fracture or dislocation. Joint spaces are maintained. Impression: 1. No acute fracture or dislocation. Industrial Service Technician: [facility] Transcribe Date/Time: Apr 03 2021 3:26P Dictated by : VIDAL SCHWARTZ MD This examination was interpreted and the report reviewed and electronically signed by: VIDAL SCHWARTZ MD on Apr 03 2021 3:27PM EST [id number] [facility] ED NOTEon 05-13-2020 ED NOTE HNO ID: [id number] Author: Nissa PrietoRn) YESICA Juan Service: Emergency Medicine Author Type: Registered Nurse Type: ED Notes Filed: 05/13/2020 12:36 PM Note Text: Pt works at a [employer] and states while working he had a sudden onset of CP to his left chest with pain into his left arm. Pt states its a tightness and has now been for two hours. Pt denies heart Hx or family Hx of chest pain. Normal [facility] ED PROV NOTEon 05-13-2020 ED PROV NOTE HNO ID: [id number] Author: Michael Duncan MD Service: Emergency Medicine Author Type: Physician Type: ED Provider Notes Filed: 05/23/2020 5:47 PM Note Text: ED Provider Note Patient Name: Josselin Crockett SERVICE DATE: 05/13/20 History Patient presents with: Chest Pain 24 yo M presents for evaluation of chest pain on the left, the patient has been having left sided chest pain now for about 2 hours, no nausea, vomiting or diaphoresis. The patient states it is sharp in nature, somewhat worse when he moves his arm. Denies fevers or chills. History reviewed. No pertinent past medical history. History reviewed. No pertinent surgical history. FAMILY HISTORY Problem Relation Age of Onset - other (Iron Deficiency Anemia [Other]) Mother Social History Tobacco Use - Smoking status: Current Every Day Smoker Packs/day: 1.00 Types: Cigarettes - Smokeless tobacco: Never Used Substance and Sexual Activity - Alcohol use: Yes Comment: occasionaly - Drug use: No - Sexual activity: Not on file ALLERGIES No Known Allergies Review of Systems Constitutional: Negative for activity change and appetite change. HENT: Negative for congestion and dental problem. Eyes: Negative for pain and redness. Respiratory: Negative for apnea and chest tightness. Cardiovascular: Positive for chest pain. Gastrointestinal: Negative for abdominal distention and abdominal pain. Genitourinary: Negative for difficulty urinating and dysuria. Musculoskeletal: Negative for arthralgias and back pain. Skin: Negative for color change and pallor. Neurological: Negative for dizziness and facial asymmetry. Psychiatric/Behavioral : Negative for agitation and behavioral problems. Physical Exam BP 133/68 Pulse 74 Temp (Src) 98.6 (Temporal) Resp 16 SpO2 100% Physical Exam Constitutional: General: He is not in acute distress. Appearance: He is well-developed. HENT: Head: Normocephalic and atraumatic. Eyes: General: Left eye: No discharge. Pupils: Pupils are equal, round, and reactive to light. Neck: Trachea: No tracheal deviation. Cardiovascular: Rate and Rhythm: Normal rate and regular rhythm. Heart sounds: Normal heart sounds. No murmur. Pulmonary: Breath sounds: No wheezing. Chest: Chest wall: Tenderness present. Comments: Minimal left sided tenderness to palpation Abdominal: General: There is no distension. Palpations: Abdomen is soft. Tenderness: There is no abdominal tenderness. Musculoskeletal: General: No deformity. Cervical back: Normal range of motion. Skin: General: Skin is warm. Findings: No erythema. Neurological: Mental Status: He is alert and oriented to person, place, and time. Cranial Nerves: No cranial nerve deficit. Diagnostic Testing ED Labs Ordered and Reviewed TROPONIN I - Normal Results for orders placed or performed during the hospital encounter of 05/13/20 TROPONIN I Result Value Ref Range Troponin I 0.000 <0.040 ng/mL EKG Result Value Ref Range Ventricular Rate 70 BPM Atrial Rate 70 BPM P-R Interval 122 ms QRS Duration 102 ms QT Interval 366 ms QTC Calculation (Bazett) 395 ms Calculated P [place] 58 degrees Calculated R [place] 22 degrees Calculated T [place] 12 degrees Procedures ED Course / Clinical Impression Clinical Impressions as of May 23 1650 Other chest pain MDM / Disposition / Plan MDM Patient with atypical chest pain, HEART score <3, the patient has no EKG changes, troponin negative, CXR without signs of PNA or PTX, will discharge in stable condition, low suspicion of PE, PERC negative. Seems more MSK related with reproducibility. The patient was DISCHARGED: Counseled patient regarding suspected diagnosis AND need for follow-up. Discharged home with verbal and written instructions. They were instructed to return as needed for persistent or worsening symptoms or any new concerns. Condition at time of disposition: stable SIGNATURE: MD Michael Landaverde MD 05/23/20 1747 Normal [facility] TROPONIN Ion 05-13-2020 Troponin I.cardiac [Mass/Vol] 0.000 ng/mL Normal <0.040 [facility] Comment on above: Order Comment: Speci men Type: BLOOD SPECIMEN Performed By: #### T ROP #### [facility] CLIA [id number] [address] [place] [address] [place] XR CHEST 2V FRONTAL/LATon XR CHEST 2V FRONTAL/LAT Final Report DATE OF EXAM: May 13 2020 1:10PM [id number] [id number] - XR CHEST 2V FRONTAL/LAT / PROCEDURE REASON: Chest pain Physician Interpretation EXAMINATION: CHEST RADIOGRAPH (2 VIEW FRONTAL & LATERAL) CLINICAL HISTORY: Chest pain MQ: [id number] EXAM DATE/TIME: 05/13/2020 1:10 PM COMPARISON: 09/06/2017. X-ray examination of the right shoulder dated 10/07/2019. RESULT: Lines, tubes, and devices: None. Lungs and pleura: No consolidation. No lung mass. No pleural effusion. No pneumothorax. Cardiomediastinal silhouette: Normal cardiomediastinal silhouette. Bones and soft tissues: Unremarkable. IMPRESSION: No acute radiographic abnormality. 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 This test was developed and its performance characteristics determined by [facility]'s [facility] [place]. This test has been authorized by FDA under an Emergency Use Authorization (EUA). This test has been validated in accordance with the FDA's Guidance Document Policy for Diagnostics Testing in Laboratories Certified to Perform High Complexity Testing under CLIA prior to Emergency use Authorization for Coronavirus Disease 2019 during the Public Health Emergency issued on June 24, 2019. Performing Laboratory: [facility] [address] [place] [address] Performed By: #### C [id number] #### [facility] [address] [address] ED NOTEon 01-15-2020 ED NOTE HNO ID: [id number] Author: Meera Salinas (Rn) YESICA Wiggins Service: Emergency Medicine Author Type: Registered Nurse Type: ED Notes Filed: 01/14/2020 10:45 PM Note Text: Congestion, headache, cough Normal [facility] ED PROV NOTEon 01-15-2020 ED PROV NOTE HNO ID: [id number] Author: Taj Ennis DO Service: Emergency Medicine Author Type: Physician Type: ED Provider Notes Filed: 01/14/2020 10:55 PM Note Text: ED Provider Note Patient Name: Josselin Crockett SERVICE DATE: 01/14/20 History Patient presents with: Flu Like Symptoms Patient presents with congestion. He is also had a mild nonproductive cough. Denies fevers. Is complaining of a frontal headache. No sick contacts. The patient denies any vomiting. Not having any endorsing any diarrhea. Nothing seems to make it better or worse. Due to the intense congestion he decided to come in. Took nothing prior to arrival. History reviewed. No pertinent past medical history. History reviewed. No pertinent surgical history. FAMILY HISTORY Problem Relation Age of Onset - other (Iron Deficiency Anemia [Other]) Mother Social History Tobacco Use - Smoking status: Never Smoker - Smokeless tobacco: Never Used Substance and Sexual Activity - Alcohol use: No - Drug use: No - Sexual activity: Not on file ALLERGIES No Known Allergies Review of Systems Constitutional: Negative for fever. HENT: Positive for congestion. Negative for ear pain. Eyes: Negative. Respiratory: Positive for cough. Cardiovascular: Negative. Gastrointestinal: Negative for abdominal distention. Musculoskeletal: Negative for myalgias. Skin: Negative. Neurological: Negative for syncope. Physical Exam BP 139/81 Pulse 78 Temp (Src) 97.2 (Temporal) Resp 18 Wt 215 lb (97.5kg) SpO2 100% O2 Therapy: Room Air Physical Exam Constitutional: Appearance: Normal appearance. HENT: Head: Normocephalic and atraumatic. Right Ear: Tympanic membrane normal. Left Ear: Tympanic membrane normal. Nose: Congestion present. Mouth/Throat: Mouth: Mucous membranes are moist. Pharynx: Oropharynx is clear. Eyes: Extraocular Movements: Extraocular movements intact. Pupils: Pupils are equal, round, and reactive to light. Neck: Musculoskeletal: Normal range of motion. Cardiovascular: Rate and Rhythm: Normal rate. Pulmonary: Effort: Pulmonary effort is normal. Abdominal: General: Abdomen is flat. Musculoskeletal: Normal range of motion. Skin: General: Skin is warm and dry. Neurological: General: No focal deficit present. Mental Status: He is alert. Psychiatric: Mood and Affect: Mood normal. Diagnostic Testing ED Labs Ordered and Reviewed - No data to display Procedures ED Course / Clinical Impression Clinical Impressions as of Jan 14 2252 Suspected COVID-19 virus infection MDM / Disposition / Plan Patient is presenting with URI, allergic versus viral. Encouraged Afrin nasal spray and an antihistamine. The patient is agreeable to COVID testing at this time. He is to stay off work until cleared. I discussed with him about self quarantining. The patient was also encouraged to take ibuprofen for the headache. If he has worsening symptoms including fever or productive cough he is to seek medical care. I do not feel x-ray of his chest would benefit the patient at this time as his lungs are clear. SIGNATURE: DO Taj Norton DO 01/14/20 1804 Normal [facility] ED Physician Reporton 2018 ED Physician Report Patient: JOSSELIN CROCKETT Age: 23 years Sex: Male : 1995 Associated Diagnoses: Anxiety Author: SAMY GLASER MD Basic Information Time seen: Time Seen: SAMY GLASER MD / 03/28/2019 19:44 . History source: Patient. Arrival mode: Private vehicle. History limitation: None. History of Present Illness The patient presents with anxiety. The onset was past 2 months. The course/duration of symptoms is constant. Character of symptoms anxious overwhelmed. Self injury:. There are exacerbating factors including family problems and Relationships. The relieving factor is none. Risk factors consist of none. Associated symptoms: shakiness, right arm twitching, and heavy breathing. A 23 y/o male, with a h/o 1x panic attack, presents to the ED for anxiety onset for the past 2 months. Pt states that he was driving and that he was worried about having another panic attack. Pt states that he is feeling overwhelmed. Pt states that he has been feeling stressed about family and relationships. Pt reports of right arm twitching, heavy breathing, and shakiness. Pt denies any previous medications. Pt denies SI and homicidal ideation. No further complaints at this time.. Review of Systems Constitutional symptoms: No fever, no chills. Skin symptoms: No jaundice, no rash. Eye symptoms: No recent vision problems, no pain, no blurred vision. ENMT symptoms: No ear pain, no sore throat, no nasal congestion. Respiratory symptoms: heavy breathing, no shortness of breath, no orthopnea, no cough. Cardiovascular symptoms: No chest pain, no palpitations, no syncope. Gastrointestinal symptoms: No abdominal pain, no nausea, no vomiting, no diarrhea, no constipation. Genitourinary symptoms: No dysuria, no hematuria. Musculoskeletal symptoms: No back pain, no Joint painReports: Right, upper arm, twitch. Psychiatric symptoms: Anxiety, Panic attack x1, no depression, not suicidal, not homicidal. Neurologic symptoms No headache, no dizziness, no altered level of consciousness. Health Status Allergies: No known allergies. Medications: Per nurse's notes. Past Medical/ Family/ Social History Medical history: Reviewed and Noncontributory. Surgical history: Reviewed and Noncontributory. Family history: Reviewed and Noncontributory. Social history: Reviewed as documented in chart. Problem list: Active Problems (2) Knowledge deficit No Chronic Problems , per nurse's notes. Physical Examination Vital Signs Vital Signs 03/28/2019 19:28 EST Temperature Oral 37.4 degC HI Peripheral Pulse Rate 72 bpm NORMAL Respiratory Rate 18 br/min NORMAL Systolic Blood Pressure 132 mmHg NORMAL Diastolic Blood Pressure 68 mmHg NORMAL SpO2 100 % NORMAL Oxygen Therapy Room air Weight Measured Type of Scale Patient Stated Weight Height/Length Dosing 177.8 cm Patient Stated Weight 97.7 kg . Per nurse's notes. General: Alert. Skin: Warm, dry, no rash. Head: Normocephalic, atraumatic. Neck: Supple, trachea midline. Eye: Pupils are equal, round and reactive to light, extraocular movements are intact. Ears, nose, mouth and throat: Oral mucosa moist. Cardiovascular: Regular rate and rhythm, No murmur, No edema. Respiratory: Lungs are clear to auscultation, respirations are non-labored, breath sounds are equal. Gastrointestinal: Soft, Nontender, Non distended, Normal bowel sounds. Back: Nontender, Normal range of motion, no step-offs. Musculoskeletal: Normal ROM, normal strength. Psychiatric: Cooperative, non-suicidal, No Suicidal Ideation or homicidal ideation, Mood and affect: Anxious. Neurological Alert and oriented to person, place, time, and situation, No focal neurological deficit observed, normal sensory observed, normal motor observed, normal speech observed. Medical Decision Making Documents reviewed: Emergency department nurses' notes, flowsheet, emergency department records, prior records. Electrocardiogram: EKG at 2011 shows a normal sinus rhythm at a rate of 72. There are no acute ischemic changes. There is an incomplete right bundle branch block. There is no STEMI. The axis is normal.. Results review: Lab results : Laboratory 03/28/2019 20:51 EST Estimated Creatinine Clearance 147.01 mL/min 03/28/2019 20:15 EST Color, U Yellow Appearance, U Clear Specific [place], U 1.016 NORMAL pH, U 7.0 NORMAL Protein, U Negative Glucose Qual, U Negative Ketones, U 80 mg/dl Bilirubin, U Negative Blood, U Negative Urobilinogen Qual, U <2.0 mg/dl Nitrite, U Negative Leukocyte Esterase, U Negative Amphetamines, U Negative Barbituates, U Negative PCP, U Negative Benzodiazepines, U Negative Cocaine, U Negative THC, U Negative Opiates, U Negative Ecstasy, U Negative 03/28/2019 20:07 EST BUN 9 mg/dL LOW Na 139 mmol/L NORMAL K 3.7 mmol/L NORMAL Chloride 105 mmol/L NORMAL CO2, venous 26.9 mmol/L NORMAL Glucose 81 mg/dL NORMAL Creatinine 0.8 mg/dL NORMAL Total Protein 7.4 g/dL NORMAL Calcium 8.8 mg/dL NORMAL Bilirubin, Total 0.77 mg/dL NORMAL Alk Phos 86 unit/L NORMAL GOT 29 unit/L NORMAL GPT 23 unit/L NORMAL BUN/Creat Ratio 11.6 NA Calculated Osmolality 275 mOsm/kg NORMAL Globulin 3.2 g/dL NA A/G Ratio 1.3 NA Free T4 0.98 ng/dL NORMAL TSH 1.59 uIU/ml NORMAL ALB 4.2 g/dL NORMAL Date Last Dose UNK Date Last Dose UNK Time Last Dose UNK Time Last Dose UNK Acetaminophen <2.0 ug/ml LOW Salicylate 2.7 mg/dL LOW Alcohol, Serum <3 mg/dL NA Glomerular Filtration Rate >60 mL/min/1.73m? NA GFR AA >60 NA WBC 8.2 x10 RBC 5.11 x10 HGB 16.1 g/dL NORMAL HCT 47.4 % NORMAL MCV 92.8 fL NORMAL MCH 31.6 pg NORMAL MCHC 34.1 g/dL NORMAL RDW 13.6 NORMAL Platelet 185 x1000 NORMAL MPV 9.2 fL NORMAL Nucleated RBC 0 /100WBC NA Lymph % 14.1 % NA [place] % 5.2 % NA Neutrophil % 79.5 % NA Eosin % 0.3 % NA Basos % 0.8 % NA Lymph Count 1.16 x1000 LOW [place] Count 0.43 x1000 NORMAL Neutrophil Count (ANC) 6.55 x1000 NORMAL Eos Count 0.03 x1000 NORMAL Baso Count 0.07 x1000 NORMAL . Reexamination/ Reevaluation Time: 03/28/2019 22:05:00 . Vital signs results included from flowsheet : Vital Signs 03/28/2019 19:28 EST Temperature Oral 37.4 degC HI Peripheral Pulse Rate 72 bpm NORMAL Respiratory Rate 18 br/min NORMAL Systolic Blood Pressure 132 mmHg NORMAL Diastolic Blood Pressure 68 mmHg NORMAL SpO2 100 % NORMAL Oxygen Therapy Room air Weight Measured Type of Scale Patient Stated Weight Height/Length Dosing 177.8 cm Patient Stated Weight 97.7 kg per nurse's notes Notes: Discussed today's findings, in addition to providing specific details for the plan of care and counseling regarding the diagnosis and prognosis. Discussed the return indications and importance of follow-up. Questions are answered, The patient is sleeping comfortably in a chair. He feels well enough to go home. The patient presented with what appears to be an anxiety attack. He had no suicidal or homicidal ideation. He has had several stressors at home, though would not really elaborate further. He has no signs or symptoms of psychosis. The patient meets no criteria for involuntary psychiatric evaluation. I did have 1 of our behavioral counselors talk with him and give him some resources. I advised the patient he would probably benefit from talking with a psychologist/psychiatr ist/therapist as an outpatient. The patient does agree to this. The patient was stable for discharge and did have a ride home. I advised him if anything concerned him or anything change, he were to call 911 or return to the emergency department. I discussed all the results with the patient. He understands and agrees with plan.. Impression and Plan Diagnosis Anxiety ([id number] F41.9, Discharge, Emergency medicine, Medical) Plan Condition: Stable. Disposition: Discharged: Time 03/28/2019 22:10:00, to home. Patient was given the following educational materials: Panic Attack. Follow up with: BALJEET CROW-ARMAO, DR NOT ON STAFF Within 3 to 5 days. Counseled: Patient, Regarding diagnosis, Regarding diagnostic results, Regarding treatment plan, Patient indicated understanding of instructions. Notes: I, Vale Valdez, janetibing for and in the presence of Dr. Samy Glaser MD. Scribe Signature: Ambrose Sanchez, 03/28/2019 21:24 , I, Bharat Lagunas, janetibing for and in the presence of Dr. Samy Glaser MD. Scribe Signature: Ambrose Saavedra, 03/28/2019 22:13 , I personally performed the services described in the documentation, reviewed and edited the documentation which was dictated to the scribe in my presence, and it accurately records my words and actions.. Normal [facility] ED Progress Noteon 9 ED Progress Note pt. presented to ED feeling anxious. pt. stated he has been very stressed out and had a panic attack around 1800 today 03/28/19. pt. stated he felt like his heart was racing and he was feeling his breath was rapid. pt. stated he has never had this happen before or ever felt this much anxiety. pt. stated he has never seen a psychiatrist or ever felt he needed one. pt. is not in pain. agree with student RN's note and assessment unless charted otherwise pt. was given discharge instructions. pt. stated he was feeling better after medication administration. pt. stated he had no further questions. pt. was discharged at . pt. discharged at 2232 Normal [facility] ACETAMIN LEVELon 03-28-2019 Acetaminophen [Mass/Vol] <2.0 Low 10.0-30.0 [facility] Comment on above: Performed By: #### 9 [id number], [id number] #### [facility] [address] [place] [address] Associate Professor Of Theology: Homer Weiss MD Date Last Dose [facility] Comment on above: Performed By: #### 9 [id number] #### [facility] [address] [place] [address] Associate Professor Of Theology: Homer Weiss MD Result Comment: VERI FIED by Discern Expert. ALCOHOL SERUMon 03-28-2019 Alcohol, Serum <3 Normal [facility] Comment on above: Result Comment: Note : Alcohol values performed at [facility] are performed on Serum and reported in mg/dl, which is different then the state reporting units of g/dl which is performed on whole blood. Result reporting units are based on test methodology and are not interchangable. Performed By: #### 1 [id number] #### [facility] [address] [place], [place] [id number] Associate Professor Of Theology: Homer Weiss MD AUTO DIFFon 03-28-2019 Basophils (Bld) [#/Vol] 0.07 x1000 Normal 0.00-0.20 [facility] Comment on above: Performed By: #### 1 [id number], [id number], [id number] #### [facility] [address] [place] [address] Associate Professor Of Theology: Homer Weiss MD Basos % 0.8 % Normal [facility] Comment on above: Performed By: #### 1 [id number], [id number], [id number], [id number] #### [facility] [address] [place], [place] [id number] Associate Professor Of Theology: Homer Weiss MD Eos Count 0.03 x1000 Normal 0.00-0.50 [facility] Comment on above: Performed By: #### 1 [id number], [id number], [id number], [id number] #### [facility] [address] [place], [place] [id number] Associate Professor Of Theology: Homer Weiss MD Eosinophils/100 WBC (Bld) 0.3 % Normal [facility] Comment on above: Performed By: #### 1 [id number], [id number], [id number], [id number] #### [facility] [address] [place], [place] [id number] Associate Professor Of Theology: Homer Weiss MD Lymphocytes (Bld) [#/Vol] 1.16 x1000 Low 1.20-4.80 [facility] Comment on above: Performed By: #### 1 [id number], [id number], [id number], [id number] #### [facility] [address] [place] [address] Associate Professor Of Theology: Homer Weiss MD Lymphocytes/100 WBC (Bld) 14.1 % Normal [facility] Comment on above: Performed By: #### 1 [id number], [id number], [id number], 085037 #### [facility] [address] [place] [address] Associate Professor Of Theology: Homer Weiss MD [place] Count 0.43 x1000 Normal 0.10-1.00 [facility] Comment on above: Performed By: #### 1 89427, [id number], [id number], [id number] #### [facility] [address] [place] [address] Associate Professor Of Theology: Homer Weiss MD Monocytes/100 WBC (Bld) 5.2 % Normal [facility] Comment on above: Performed By: #### 1 43121, [id number], [id number], [id number] #### [facility] [address] [place] [address] Associate Professor Of Theology: Homer Weiss MD Neutrophils (Bld) [#/Vol] 6.55 x1000 Normal 1.40-8.80 [facility] Comment on above: Performed By: #### 1 [id number], [id number], 318603, [id number] #### [facility] [address] [place] [address] Associate Professor Of Theology: Homer Weiss MD Neutrophils/100 WBC (Bld) 79.5 % Normal [facility] Comment on above: Performed By: #### 1 91700, [id number], 907404, [id number] #### [facility] [address] [place] [address] Associate Professor Of Theology: Homer Weiss MD COMPMETAon 03-28-2019 Albumin/Globulin [Mass ratio] 1.3 {ratio} Normal [facility] Comment on above: Performed By: #### 1 01586, [id number], [id number], [id number] #### [facility] [address] [place] [address] Associate Professor Of Theology: Homer Weiss MD GFR AA >60 Normal [facility] Comment on above: Result Comment: Afri can [place] GFR Calc Medical judgement is necessary to interpret GFR. The calculated GFR may not accurately reflect renal status in patients >70 years, women, acutely ill hospitalized patients and patients with acute renal failure or known renal disease. The MDRD GFR formula is valid only for adults greater than 18 years of age. Note: Creatinine clearance (not GFR) should be used for drug dosing. Performed By: #### 1 [id number], [id number], 884954, [id number] #### [facility] [address] [place] [address] Associate Professor Of Theology: Homer Weiss MD GFR/1.73 sq M predicted among non-blacks MDRD (S/P/Bld) [Vol rate/Area] mL/min/{1.73_m2} Normal [facility] Comment on above: Result Comment: Non GFR Calc Medical judgement is necessary to interpret GFR. The calculated GFR may not accurately reflect renal status in patients >70 years, women, acutely ill hospitalized patients and patients with acute renal failure or known renal disease. The MDRD GFR formula is valid only for adults greater than 18 years of age. Note: Creatinine clearance (not GFR) should be used for drug dosing. Performed By: #### 1 46105, [id number], 012108, [id number] #### [facility] [address] [place] [address] Associate Professor Of Theology: Homer Wesis MD Osmolality [Osmolality] 275 mOsm/kg Normal 275-295 [facility] Comment on above: Performed By: #### 1 [id number], [id number], 984452, [id number] #### [facility] [address] [place] [address] Associate Professor Of Theology: Homer Weiss MD Urea nitrogen/Creatinine [Mass ratio] 11.6 mg/mg Normal [facility] Comment on above: Performed By: #### 1 01129, [id number], 949466, 143789 #### [facility] [address] [place] [address] 10724 Associate Professor Of Theology: Homer Weiss MD Albumin [Mass/Vol] 4.2 g/dL Normal 3.4-5.0 [facility] Comment on above: Performed By: #### 1 00743, [id number], 376641, 410357 #### [facility] [address] [place] [address] 29749 Associate Professor Of Theology: Homer Weiss MD Alk Phos 86 unit/L Normal 45-117 [facility] Comment on above: Performed By: #### 1 88403, [id number], 334722, 810396 #### [facility] [address] [place], [place] [id number] Associate Professor Of Theology: Homer Weiss MD Bilirubin [Mass/Vol] 0.77 mg/dL Normal 0.20-1.00 [facility] Comment on above: Performed By: #### 1 81492, 2381444, 140248, 064122 #### [facility] [address] [place] [address] 69872 Associate Professor Of Theology: Homer Weiss MD Calcium [Mass/Vol] 8.8 mg/dL Normal 8.5-10.5 [facility] Comment on above: Performed By: #### 1 73729, 9757505, 126282, 894482 #### [facility] [address] [place] [address] 71612 Associate Professor Of Theology: Homer Weiss MD Chloride [Moles/Vol] 105 mmol/L Normal 100-109 [facility] Comment on above: Performed By: #### 1 05589, 5710870, 667799, 314676 #### [facility] [address] [place] [address] 06246 Associate Professor Of Theology: Homer Weiss MD CO2, venous 26.9 mmol/L Normal 21.0-32.0 [facility] Comment on above: Performed By: #### 1 30487, 1979167, 631012, 001200 #### [facility] [address] [place] [address] 29714 Associate Professor Of Theology: Homer Weiss MD Creatinine [Mass/Vol] 0.8 mg/dL Normal 0.7-1.3 [facility] Comment on above: Performed By: #### 1 , [id number], 235697, 644513 #### [facility] [address] [place] [address] 95740 Associate Professor Of Theology: Homer Weiss MD Globulin (S) [Mass/Vol] 3.2 g/dL Normal [facility] Comment on above: Performed By: #### 1 29562, 1638686, 102811, 981122 #### [facility] [address] [place] [address] 94957 Associate Professor Of Theology: Homer Weiss MD Glucose [Mass/Vol] 81 mg/dL Normal 72-100 [facility] Comment on above: Result Comment: Sweetie puncture should occur prior to sulfasalazine administration due to the potential for falsely depressed results. Venipuncture should occur prior to sulfapyridine administration due to the potential falsely elevated results. Baseline assay values before administration of sulfasalazine and sulfapyridine therapy would not be affected. Performed By: #### 1 10714, 9002830, 494518, 656694 #### [facility] [address] [place] [address] 53314 Associate Professor Of Theology: Homer Weiss MD GOT 29 unit/L Normal 15-37 [facility] Comment on above: Result Comment: Sweetie puncture should occur prior to sulfasalazine and/or sulfapyridine administration due to the potential for falsely depressed results. Baseline assay values before administration of sulfasalazine and sulfapyridine therapy would not be affected. Performed By: #### 1 41622, [id number], 092990, 206233 #### [facility] [address] [place] [address] Associate Professor Of Theology: Homer Weiss MD GPT 23 unit/L Normal 16-61 [facility] Comment on above: Result Comment: Sweetie puncture should occur prior to sulfasalazine and/or sulfapyridine administration due to the potential for falsely depressed results. Baseline assay values before administration of sulfasalazine and sulfapyridine therapy would not be affected. Performed By: #### 1 29412, 1232156, 330375, 685665 #### [facility] [address] [place] [address] 44576 Associate Professor Of Theology: Homer Weiss MD Potassium [Moles/Vol] 3.7 mmol/L Normal 3.5-5.1 [facility] Comment on above: Performed By: #### 1 40756, 1146118, 193370, 543528 #### [facility] [address] [place] [address] 04952 Associate Professor Of Theology: Homer Weiss MD Protein [Mass/Vol] 7.4 g/dL Normal 6.0-8.5 [facility] Comment on above: Performed By: #### 1 61687, 9462303, 886286, 835297 #### [facility] [address] [place] [address] 23159 Associate Professor Of Theology: Homer Weiss MD Sodium [Moles/Vol] 139 mmol/L Normal 135-145 [facility] Comment on above: Performed By: #### 1 34063, 2905222, 933954, 803933 #### [facility] [address] [place] [address] 38588 Associate Professor Of Theology: Homer Weiss MD Urea nitrogen [Mass/Vol] 9 mg/dL Low 10-20 [facility] Comment on above: Performed By: #### 1 42110, 1876954, 071818, 311246 #### [facility] [address] [place] [address] 17506 Associate Professor Of Theology: Homer Weiss MD HEMOon 03-28-2019 DIFF? No Normal [facility] Comment on above: Performed By: #### 1 73042, 2025904, 399904, 946163 #### [facility] [address] [place] [address] 38338 Associate Professor Of Theology: Homer Weiss MD Erythrocyte distribution width (RBC) [Ratio] 13.6 % Normal 11.5-14.5 [facility] Comment on above: Performed By: #### 1 40360, 1711957, 123677, 545796 #### [facility] [address] [place] [address] 83061 Associate Professor Of Theology: Homer Weiss MD Hematocrit (Bld) [Volume fraction] 47.4 % Normal 41.0-52.0 [facility] Comment on above: Performed By: #### 1 98386, 9337772, 037138, 416250 #### [facility] [address] [place], [place] [address] Associate Professor Of Theology: Homer Weiss MD Hemoglobin (Bld) [Mass/Vol] 16.1 g/dL Normal 13.5-17.5 [facility] Comment on above: Performed By: #### 1 03777, 7859307, 222083, 440927 #### [facility] [address] [place], [place] [address] Associate Professor Of Theology: Homer Weiss MD MCH (RBC) [Entitic mass] 31.6 pg Normal 27.0-34.0 [facility] Comment on above: Performed By: #### 1 11618, 5712758, 713964, 393762 #### [facility] [address] [place] [address] 72888 Associate Professor Of Theology: Homer Weiss MD MCHC (RBC) [Mass/Vol] 34.1 g/dL Normal 32.0-37.0 [facility] Comment on above: Performed By: #### 1 08055, 8996967, 417431, 342035 #### [facility] [address] [place] [address] Associate Professor Of Theology: Homer Weiss MD MCV (RBC) [Entitic vol] 92.8 fL Normal 80.0-100.0 [facility] Comment on above: Performed By: #### 1 76958, 2108174, 964760, 161102 #### [facility] [address] [place] [address] 14834 Associate Professor Of Theology: Homer Weiss MD Nucleated RBC (Bld) [#/Vol] 0 /100WBC Normal [facility] Comment on above: Performed By: #### 1 35808, 5520926, 831608, 233838 #### [facility] [address] [place] [address] 93174 Associate Professor Of Theology: Homer Weiss MD Platelet mean volume (Bld) [Entitic vol] 9.2 fL Normal 7.4-10.4 [facility] Comment on above: Performed By: #### 1 48346, 6684713, 030989, 064063 #### [facility] [address] [place] [address] 09882 Associate Professor Of Theology: Homer Weiss MD Platelets (Bld) [#/Vol] 185 x1000 Normal 150-450 [facility] Comment on above: Performed By: #### 1 41350, 7133285, 997068, 648093 #### [facility] [address] [place] [address] 88074 Associate Professor Of Theology: Homer Weiss MD RBC (Bld) [#/Vol] 5.11 x10 Normal 4.70-6.10 [facility] Comment on above: Result Comment: Note : RBC morphology is normal unless otherwise stated. Evaluation performed only if differential is requested. Performed By: #### 1 77509, 1849175, 131801, 208632 #### [facility] [address] [place] [address] 15223 Associate Professor Of Theology: Homer Weiss MD WBC (Bld) [#/Vol] 8.2 x10 Normal 4.5-11.0 [facility] Comment on above: Performed By: #### 1 93846, 9121551, 996774, 816936 #### [facility] [address] [place] [address] 80290 Associate Professor Of Theology: Homer Weiss MD WBC (Bld) [#/Vol] 8.2 10*3/uL Normal [facility] Comment on above: Performed By: #### 1 30195, 9919157, 252585, 452692 #### [facility] [address] [place], [place] [address] Associate Professor Of Theology: Homer Weiss MD SALICYLATE LEVELon 9 Time Last Dose Normal [facility] Comment on above: Result Comment: VERI FIED by Discern Expert. Performed By: #### 9 136500, 7615237 #### [facility] [address] [place], [place] [address] Associate Professor Of Theology: Homer Weiss MD Salicylate 2.7 mg/dL Low 2.8-20.0 [facility] Comment on above: Performed By: #### 9 275660, 7957988 #### [facility] [address] [place], [place] [address] Associate Professor Of Theology: Homer Weiss MD THY GPon 03-28-2019 Free T4 [Mass/Vol] 0.98 ng/dL Normal 0.76-1.46 [facility] Comment on above: Result Comment: High levels of serum biotin may interfere with this test. Performed By: #### 1 40144, 1675732, 911231, 583463 #### [facility] [address] [place] [address] 73527 Associate Professor Of Theology: Homer Weiss MD TSH Qn 1.59 uIU/ml Normal 0.36-3.74 [facility] Comment on above: Result Comment: High levels of serum biotin may interfere with this test. Performed By: #### 1 73963, 1801751, 650924, 377274 #### [facility] [address] [place] [address] 89511 Associate Professor Of Theology: MD Prakash Willoughby 03-28-2019 Amphetamines, U Negative Normal [facility] Comment on above: Result Comment: Urin e for Drugs of Abuse tests (U Amphetamines, U Barbiturates, U PCP, U Benzodiazepines, U Cocaine, U THC, U Opiates & U Ecstasy)provide preliminary test results only. A more specific alternate method must be used in order to obtain a confirmed analytical result. Gas chromatography/mass spectrometry is the preferred confirmatory method. Clinical consideration and professional judgment should be applied to any drug of abuse test result, particularly when preliminary positive results are used. Results should not be used for non-medical purposes. Urine for Drugs of Abuse [place] Levels: Barbiturate 200 ng/ml PCP 25 ng/ml Cocaine 300 ng/ml Opiates 2000 ng/ml Amphetamines 1000 ng/ml Benzodiazepines 200 ng/ml THC 50 ng/ml EXTC 500 ng/ml Performed By: #### 1 69525 #### [facility] [address] [place] [address] 17184 Associate Professor Of Theology: Homer Weiss MD Barbituates, U Negative [facility] Comment on above: Performed By: #### 1 77975 #### [facility] [address] [place] [address] 67856 Associate Professor Of Theology: Homer Weiss MD Benzodiazepines, U Negative Normal [facility] Comment on above: Performed By: #### 1 91139 #### [facility] [address] [place] [address] 23556 Associate Professor Of Theology: Homer Weiss MD Cocaine, U Negative Normal [facility] Comment on above: Performed By: #### 1 93636 #### [facility] [address] [place] [address] 13758 Associate Professor Of Theology: Homer Weiss MD Ecstasy, U Negative Normal [facility] Comment on above: Performed By: #### 1 24076 #### [facility] [address] [place] [address] 25877 Associate Professor Of Theology: Homer eWiss MD Opiates, U Negative Normal [facility] Comment on above: Performed By: #### 1 18951 #### [facility] [address] [place] [address] 10109 Associate Professor Of Theology: Homer Weiss MD PCP, U Negative Normal [facility] Comment on above: Performed By: #### 1 91198 #### [facility] [address] [place] [address] 36580 Associate Professor Of Theology: Homer Weiss MD THC, U Negative Normal [facility] Comment on above: Performed By: #### 1 84789 #### [facility] [address] [place] [address] 20044 Associate Professor Of Theology: Homer Weiss MD UA 03-28-2019 U MICRO Not Indicated Normal [facility] Comment on above: Performed By: #### 1 62755 #### [facility] [address] [place] [address] 01365 Associate Professor Of Theology: Homer Weiss MD Appearance, U Clear Normal [facility] Comment on above: Performed By: #### 1 32604 #### [facility] [address] [place] [address] 44638 Associate Professor Of Theology: Homer Weiss MD Bilirubin, U Negative Normal Negative [facility] Comment on above: Performed By: #### 1 50080 #### [facility] [address] [place] [address] 71993 Associate Professor Of Theology: Homer Weiss MD Blood, U Negative Normal Negative [facility] Comment on above: Performed By: #### 1 03963 #### [facility] [address] [place] [address] 84584 Associate Professor Of Theology: Homer Weiss MD Color, U Yellow Normal [facility] Comment on above: Performed By: #### 1 81184 #### [facility] [address] [place] [address] 27205 Associate Professor Of Theology: Homer Weiss MD Glucose Qual, U Negative Normal Negative [facility] Comment on above: Performed By: #### 1 86202 #### [facility] [address] [place] [address] 39180 Associate Professor Of Theology: Homer Weiss MD Ketones, U 80 mg/dl Abnormal Negative [facility] Comment on above: Performed By: #### 1 59288 #### [facility] [address] [place] [address] 57868 Associate Professor Of Theology: Homer Weiss MD Leukocyte Esterase, U Negative Normal Negative [facility] Comment on above: Performed By: #### 1 50325 #### [facility] [address] [place] [address] 50590 Associate Professor Of Theology: Homer Weiss MD Nitrite, U Negative Normal Negative [facility] Comment on above: Performed By: #### 1 78987 #### [facility] [address] [place] [address] 79280 Associate Professor Of Theology: Homer Weiss MD pH, U 7.0 Normal 4.5-8.0 [facility] Comment on above: Performed By: #### 1 94640 #### [facility] [address] [place] [address] 51932 Associate Professor Of Theology: Homer Weiss MD Protein, U Negative Normal Negative [facility] Comment on above: Performed By: #### 1 04210 #### [facility] [address] [place] [address] 97836 Associate Professor Of Theology: Homer Weiss MD Specific [place], U 1.016 Normal 1.001-1.035 [facility] Comment on above: Performed By: #### 1 95873 #### [facility] [address] [place] [address] 96682 Associate Professor Of Theology: Homer Weiss MD Urobilinogen Qual, U <2.0 mg/dl Normal <2.0 mg/dl [facility] Comment on above: Result Comment: EU/d l and mg/dl are equivalent units. Performed By: #### 1 20307 #### [facility] [address] [place] [id number] Associate Professor Of Theology: Homer Weiss MD Encounters Encounter Date Encounter Type Care Provider Facility Start: 04-26-2024 Emergency department patient visit Facility:[facility] Start: 03-26-2023 ambulatory Minal Grover RN [employer] Comment on above: Abdominal Pain Start: 10-01-2021 ambulatory Branden perla DO Work Phone: Orthopaedics Comment on above: Mri results Start: 09-21-2021 End: 09-21-2021 Subsequent hospital visit by physician [facility] (1.5t) Radiology Comment on above: Acute right ankle pa in [M25.571] Start: 09-09-2021 Telephone encounter Branden Bernard DO Work Phone: Orthopaedics Comment on above: Patient Update Start: 09-03-2021 End: 09-03-2021 Subsequent hospital visit by physician [facility] Work Phone: Radiology Comment on above: Sprain of anterior t alofibular ligament of right ankle, initial encounter [S93.491A] Start: 09-03-2021 End: 09-03-2021 Patient encounter procedure Branden Bernard DO Work Phone: Orthopaedics Comment on above: Sprain of anterior t alofibular ligament of right ankle, initial encounter (Primary Dx); Peroneal tendinitis of right lower extremity Start: 08-31-2021 ambulatory Room Emergency Radiolog y Comment on above: Radio Gen RMP Start: 08-31-2021 Patient encounter procedure Room Emergency [facility] Procedures Date Procedure Procedure Detail Performing Clinician Start: 09-21-2021 Mri any jt lower ext rem w/o contrast matrl Branden Bernard DO Work Phone: Start: 09-03-2021 Radex ankle complete minimum 3 views Branden Landeros Marco Antonio DO Work Phone: Start: 06-21-2014 Adult depression screening assessment Room Emergency Plan of Treatment Date Care Activity Detail Author Start: 05-06-2025 Urine microalbumin profile DTaP,Tdap,Td Vaccine (9 - Td or Tdap) [facility] Start: 12-25-2022 Influenza vaccination Influenza Vaccine (#1) [facility] Start: 04-26-2022 Depression Assessment Depression Assessment [facility] Start: 12-25-2021 Influenza vaccination INFLUENZA (Season Ended) [facility] Start: 06-21-2015 Adult depression screening assessment DEPRESSION SCREENING [facility] Start: 2013 Urine microalbumin profile DTAP,TDAP,TD (1 - Tdap) [facility] Start: 04-21-2013 HPV Vaccine (3 - Male 3-dose series) HPV Vaccine (3 - Male 3-dose series) [facility] Start: 2012 HEPATITIS C SCREENING HEPATITIS C SCREENING [facility] Start: 2012 HIV SCREENING HIV SCREENING [facility] Start: 2008 PEDS TO ADULT TRANSITION ANNUAL ASSESSMENT PEDS TO ADULT TRANSITION ANNUAL ASSESSMENT [facility] Start: 2006 PEDS TO ADULT TRANSITION INITIAL DISCUSSION PEDS TO ADULT TRANSITION INITIAL DISCUSSION [facility] Start: 2005 HPV VACCINE (1 - Male 2-dose series) HPV VACCINE (1 - Male 2-dose series) [facility] Start: 2000 PNEUMOCOCCAL (1 - PCV) PNEUMOCOCCAL (1 - PCV) [facility] Start: 12-20-1999 COVID-19 VACCINE (#1) COVID-19 VACCINE (#1) [facility] Start: 12-20-1999 COVID-19 VACCINE (1) COVID-19 VACCINE (1) [facility] Start: 06-21-1995 Covid-19 Vaccine (#1) Covid-19 Vaccine (#1) [facility] Mri any jt lower ext rem w/o contrast matrl MRI ANKLE WO IVCON RT Radiology Routine Acute right ankle pain 09/21/2021 10:[address] [facility] Work Phone: [facility] Immunizations Immunization Date Immunization Notes Care Provider Ana murrellpham 02-16-2015 influenza virus vacc ine, unspecified formulation Minal Grover RN [facility] Payers Date Payer Category Payer Medicaid [employer] [id number] 2022-Present [phone] [address] [place] [address] Medicaid [id number] 2022 Medicaid [id number] 2018 Medicaid [employer] [id number] 2018-Present [phone] [address] [place] [address] Medicaid [id number] Social History Date Type Detail Facility Start: [facility]-13-[facility] History of tobacco use Cigarette Smoker [facility] Start: 05-13-2020 End: 11-13-2022 Cigarettes smoked current (pack per day) - Reported 1 [facility] Start: 05-13-2020 End: 03-25-2023 Tobacco use and exposure Smokeless tobacco non-user [facility] Start: 08-31-2021 End: 03-26-2023 Alcohol intake Current drinker of alcohol (finding) [facility] Start: 05-13-2020 History SDOH Alcohol Comment occasionaly [facility] Start: 1994 Sex Assigned At Not on file C [facility] Start: 08-21-2021 End: 09-21-2021 Exposure to SARS-CoV-2 (event) Not sure [facility] Start: 03-25-2023 [facility] History of tobacco use Current smoker [facility] Start: 11-13-2022 End: 03-26-2023 Tobacco use panel [facility] PHQ2 Score 0 [facility] Start: 1994 Sex Assigned At Male C [facility] Start: 10-02-2021 Gender identity Identifies as male gender (finding) [facility] Clinical Notes 04-03-2021 to 03-26-2023 Telephone Encounter - Minal Grover RN - 03/26/2023 10:50 PM ESTTelephone Encounter - Lulú JACOBS - 10/02/2021 6:49 AM EDTTelephone Encounter - Dagmar Woods - 10/01/2021 3:47 PM EDT Note Date & Type Note Facility 03-26-2023 Miscellaneous Notes Reason for Call: States he was seen in ED yesterday for abdominal pain. States he was diagnosed with constipation, and completed ED discharge rectal suppository and drank bottle constipation medication. Onset this afternoon of severe left lower abdominal pain radiating around the side into left lower back, and vomiting clear yellow liquid. Severe pain constant for the last 3 hours. States he knows he needs to return to ED, calling first for triage. Outcome: Go to ED now. States he will go to [facility] ED now. Reason for Disposition [1] SEVERE pain (e.g., excruciating) AND [2] present > 1 hour Protocols used: Abdominal Pain - [id number] documented in this encounter [facility] 10-02-2021 Miscellaneous Notes Patient has been scheduled Thank you! Can we please schedule patient for a virtual visit at 12:45 on Wednesday to go over ankle MRI results. Thank you! Dagmar Woods documented in this encounter [facility] 09-21-2021 History of Presen t illness Narrative Radiology Service Progress Note PATIENT NAME: Josselin Crockett DATE OF SERVICE: September 21, 2021 TIME: 9:44 AM PATIENT IDENTITY VERIFICATION COMPLETED USING TWO (2) IDENTIFIERS: Name and Date of confirmed by patient verbally and Name and Date of confirmed by identification band. FALL SCREENING: Has the patient had 2 falls in the last year or 1 fall with injury or currently using an Ambulatory Assistive Device (Walker, Cane, Wheelchair, Crutches, etc.)? Yes, Patient High Risk for Falls What interventions were put in place to prevent falls during this visit? Increased Observations by Caregivers PATIENT GENDER DATA: Male PATIENT RELEVANT IMPLANT DATA REVIEWED: Yes RADIOLOGY DEPARTMENT: MR; Exam(s) Completed: Lower MSK: Ankle/Hind Foot, right PERIPHERAL IV DATA: Not applicable SIGNED BY: ABRAHAM Crabtree Tech September 21, 2021 9:44 AM documented in this encounter [facility] 09-09-2021 Miscellaneous Notes MRI and follow up appointment have been scheduled for patient. Thank you! Done Branden Bernard, DO PSS Please call pt and advised MRI is ordered and help with appt Per OV 09/03/21, MRI would be recommended if pt was still presenting with any issues Can this be ordered? Patient is calling stating he is having more pain, swelling has gone down but is having a radiating pain from his ankle into his knee (going up his leg). He has been icing it and using the boot, but when he sleeps at night the pain radiating into his knee is very bad and waking him up throughout the night. Please advise the next step. Josselin can be reached at . Thanks! documented in this encounter [facility] 09-03-2021 Miscellaneous Notes Radiology Service Progress Note PATIENT NAME: Josselin Crockett DATE OF SERVICE: September 03, 2021 TIME: 12:22 PM PATIENT IDENTITY VERIFICATION COMPLETED USING TWO (2) IDENTIFIERS: Name and Date of confirmed by patient verbally. FALL SCREENING: Has the patient had 2 falls in the last year or 1 fall with injury or currently using an Ambulatory Assistive Device (Walker, Cane, Wheelchair, Crutches, etc.)? No PATIENT GENDER DATA: Male PATIENT RELEVANT IMPLANT DATA REVIEWED: Not Applicable RADIOLOGY DEPARTMENT: General X-ray: Exam(s) Completed: Lower Extremity X-Ray(s): Ankle, Right PERIPHERAL IV DATA: Not applicable SIGNED BY: RT Rufino(Bree) September 03, 2021 12:22 PM documented in this encounter [facility] 09-03-2021 Note HNO ID: [id number] Author: Branden Bernard, DO Service: ? Author Type: Physician Type: Progress Notes Filed: 09/10/2021 12:39 PM Note Text: Reason for Visit/Chief Complaint Josselin Crockett is a 25 year old male who presents today for a new evaluation of following complaint: Patient presents with: Right Ankle - New, Pain History of Present Illness: PAIN EVALUATION 09/03/2021 1116 Pain Level: 6 Pain Location: Ankle-Right Description: Aching;Dull;Radiating;Throbbing ;Other: See comment radiates to knee Duration Amount of Time: 3 Duration Units: Days Frequency: Continuous Intervention/Comfort measure: Relaxation;Reposition;Cold;Medi cation;Other: See comment ibuprofen, jaquan wrap HPI: Josselin Crockett is a 25 year old male presenting today with right ankle pain. Patient rolled his ankle 3 days ago playing basketball , went to er and they place in ankle brace unable to wear with shoe, and is having continued pain and swelling. Pain history is noted as above. Denies calf pain, numbness, tingling, fever, chills or other constitutional symptoms. Works in [employer]. Has sprained injury in the past, but didn't get looked at until this past weekend. Previous Treatments: Ice: Yes Heat: No Brace: No NSAIDs: Yes, ibuprofen Injections: No Surgeries: No Physical Therapy: No Review of Systems: Patient did not have, and does not currently have, any weight loss, malaise, fever, chills, headache, chest pain, chest pressure, palpitations, cough, shortness of breath, orthopnea, paroxsymal nocturnal dyspnea, nausea, vomiting, diarrhea, constipation, melena, hematochezia, urinary difficulties, prolonged bleeding, easily bruising, heat or cold intolerance, new onset joint pain or swelling, new onset extremity weakness or numbness, new onset auditory or visual disturbances, lightheadedness, dizziness, partial loss of consciousness or full loss of consciousness. Current Outpatient Medications on File Prior to Visit Medication Sig - ibuprofen (MOTRIN) 600 mg tablet Take 1 tablet by mouth every 12 hours as needed for pain. - hydrocortisone 1 % cream Apply to affected area twice daily. No current facility-administered medications on file prior to visit. ALLERGIES No Known Allergies Physical Exam: Vitals: There were no vitals taken for this visit. Psych: Pleasant, good affect and mood General Appearance: Well appearing, alert, in no acute distress, well-hydrated, well nourished.. Skin: Skin color, texture, turgor normal, no suspicious rashes or lesions. Peripheral Pulses: Normal. Neurologic: Gait normal. Reflexes normal and symmetric. Sensation grossly intact.. Lymph Nodes: No cervical lymphadenopathy, No supraclavicular lymphadenopathy, No axillary lymphadenopathy. and No inguinal lymphadenopathy.. Respiratory: No recent pulmonary infection, hemoptysis, chronic cough, or shortness of breath at rest Rheumatologic: Joint deformities: right ankle pain Right Ankle Exam Tenderness The patient is experiencing tenderness in the ATF. Swelling: moderate Range of Motion Dorsiflexion: normal Plantar flexion: normal Eversion: normal Inversion: normal Muscle Strength Dorsiflexion: 5/5 Plantar flexion: 5/5 Anterior tibial: 5/5 Posterior tibial: 5/5 Gastrocsoleus: 5/5 Peroneal muscle: 5/5 Tests Anterior drawer: 2+ Varus tilt: negative Other Erythema: absent Sensation: normal Pulse: present Left Ankle Exam Left ankle exam is normal. Tenderness The patient is experiencing no tenderness. Range of Motion The patient has normal left ankle ROM. Dorsiflexion: normal Plantar flexion: normal Eversion: normal Inversion: normal Muscle Strength Dorsiflexion: 5/5 Plantar flexion: 5/5 Anterior tibial: 5/5 Posterior tibial: 5/5 Gastrocsoleus: 5/5 Peroneal muscle: 5/5 Tests Anterior drawer: negative Varus tilt: negative Other Erythema: absent Sensation: normal Pulse: present Imaging: Last XR Ankle - Impression Only XR ANKLE GENERAL 3V AP/LAT/OBL RIGHT Exam End: 08/31/2021 9:48 PM (Final result) Impression: IMPRESSION: No acute osseous abnormality identified Soft tissue swelling Industrial Service Technician: YOLANDA ... Complete Results Assessment and Plan: Impression: No diagnosis found. Plan: Elevate, nsaids, compression Apply ice Cam boot PT Follow up in 2 weeks If still having issues would order MRI Patient aware and in agreement of plan. All questions answered. Out of work note for 2 weeks and reeval at that time Today, in detail, through a thorough evaluation, we discussed possible etiologies of pain and our plans for further diagnostic and therapeutic interventions. We discussed strategies for decreasing pain and improving strength, stability and motion. Patient's questions were answered in detailed. Patient verbalizes understanding and agrees with the treatment plan as discussed. [facility] 09-03-2021 History of Presen t illness Narrative Images from the original note were not included. Reason for Visit/Chief Complaint Josselin Crockett is a 25 year old male who presents today for a new evaluation of following complaint: Patient presents with: Right Ankle - New, Pain History of Present Illness: PAIN EVALUATION 09/03/2021 1116 Pain Level: 6 Pain Location: Ankle-Right Description: Aching;Dull;Radiating;Throbbing ;Other: See comment radiates to knee Duration Amount of Time: 3 Duration Units: Days Frequency: Continuous Intervention/Comfort measure: Relaxation;Reposition;Cold;Medi cation;Other: See comment ibuprofen, jaquan wrap HPI: Josselin Crockett is a 25 year old male presenting today with right ankle pain. Patient rolled his ankle 3 days ago playing basketball , went to er and they place in ankle brace unable to wear with shoe, and is having continued pain and swelling. Pain history is noted as above. Denies calf pain, numbness, tingling, fever, chills or other constitutional symptoms. Works in [employer]. Has sprained injury in the past, but didn't get looked at until this past weekend. Previous Treatments: Ice: Yes Heat: No Brace: No NSAIDs: Yes, ibuprofen Injections: No Surgeries: No Physical Therapy: No Review of Systems: Patient did not have, and does not currently have, any weight loss, malaise, fever, chills, headache, chest pain, chest pressure, palpitations, cough, shortness of breath, orthopnea, paroxsymal nocturnal dyspnea, nausea, vomiting, diarrhea, constipation, melena, hematochezia, urinary difficulties, prolonged bleeding, easily bruising, heat or cold intolerance, new onset joint pain or swelling, new onset extremity weakness or numbness, new onset auditory or visual disturbances, lightheadedness, dizziness, partial loss of consciousness or full loss of consciousness. Current Outpatient Medications on File Prior to Visit Medication Sig ibuprofen (MOTRIN) 600 mg tablet Take 1 tablet by mouth every 12 hours as needed for pain. hydrocortisone 1 % cream Apply to affected area twice daily. No current facility-administered medications on file prior to visit. ALLERGIES No Known Allergies Physical Exam: Vitals: There were no vitals taken for this visit. Psych: Pleasant, good affect and mood General Appearance: Well appearing, alert, in no acute distress, well-hydrated, well nourished.. Skin: Skin color, texture, turgor normal, no suspicious rashes or lesions. Peripheral Pulses: Normal. Neurologic: Gait normal. Reflexes normal and symmetric. Sensation grossly intact.. Lymph Nodes: No cervical lymphadenopathy, No supraclavicular lymphadenopathy, No axillary lymphadenopathy. and No inguinal lymphadenopathy.. Respiratory: No recent pulmonary infection, hemoptysis, chronic cough, or shortness of breath at rest Rheumatologic: Joint deformities: right ankle pain Right Ankle Exam Tenderness The patient is experiencing tenderness in the ATF. Swelling: moderate Range of Motion Dorsiflexion: normal Plantar flexion: normal Eversion: normal Inversion: normal Muscle Strength Dorsiflexion: 5/5 Plantar flexion: 5/5 Anterior tibial: 5/5 Posterior tibial: 5/5 Gastrocsoleus: 5/5 Peroneal muscle: 5/5 Tests Anterior drawer: 2+ Varus tilt: negative Other Erythema: absent Sensation: normal Pulse: present Left Ankle Exam Left ankle exam is normal. Tenderness The patient is experiencing no tenderness. Range of Motion The patient has normal left ankle ROM. Dorsiflexion: normal Plantar flexion: normal Eversion: normal Inversion: normal Muscle Strength Dorsiflexion: 5/5 Plantar flexion: 5/5 Anterior tibial: 5/5 Posterior tibial: 5/5 Gastrocsoleus: 5/5 Peroneal muscle: 5/5 Tests Anterior drawer: negative Varus tilt: negative Other Erythema: absent Sensation: normal Pulse: present Imaging: Last XR Ankle - Impression Only XR ANKLE GENERAL 3V AP/LAT/OBL RIGHT Exam End: 08/31/2021 9:48 PM (Final result) Impression: IMPRESSION: No acute osseous abnormality identified Soft tissue swelling Industrial Service Technician: YOLANDA ... Complete Results Assessment and Plan: Impression: No diagnosis found. Plan: Elevate, nsaids, compression Apply ice Cam boot PT Follow up in 2 weeks If still having issues would order MRI Patient aware and in agreement of plan. All questions answered. Out of work note for 2 weeks and reeval at that time Today, in detail, through a thorough evaluation, we discussed possible etiologies of pain and our plans for further diagnostic and therapeutic interventions. We discussed strategies for decreasing pain and improving strength, stability and motion. Patient's questions were answered in detailed. Patient verbalizes understanding and agrees with the treatment plan as discussed. documented in this encounter [facility] 08-31-2021 Note HNO ID: [id number] Author: Aleksandra Estrella RT(R) Service: ? Author Type: Clinical Documentation Nurse Type: Progress Notes Filed: 08/31/2021 9:51 PM Note Text: Radiology Service Progress Note PATIENT NAME: Josselin Crockett DATE OF SERVICE: August 31, 2021 TIME: 9:51 PM PATIENT IDENTITY VERIFICATION COMPLETED USING TWO (2) IDENTIFIERS: Name and Date of confirmed by patient verbally. FALL SCREENING: Has the patient had 2 falls in the last year or 1 fall with injury or currently using an Ambulatory Assistive Device (Walker, Cane, Wheelchair, Crutches, etc.)? Emergency Room Patient: Screened in ED PATIENT GENDER DATA: Male PATIENT RELEVANT IMPLANT DATA REVIEWED: Not Applicable RADIOLOGY DEPARTMENT: General X-ray: Exam(s) Completed: Lower Extremity X-Ray(s): Ankle, Right PERIPHERAL IV DATA: Not applicable SIGNED BY: RT Alisha(R) August 31, 2021 9:51 PM [facility] 08-31-2021 History of Presen t illness Narrative Radiology Service Progress Note PATIENT NAME: Josselin Crockett DATE OF SERVICE: August 31, 2021 TIME: 9:51 PM PATIENT IDENTITY VERIFICATION COMPLETED USING TWO (2) IDENTIFIERS: Name and Date of confirmed by patient verbally. FALL SCREENING: Has the patient had 2 falls in the last year or 1 fall with injury or currently using an Ambulatory Assistive Device (Walker, Cane, Wheelchair, Crutches, etc.)? Emergency Room Patient: Screened in ED PATIENT GENDER DATA: Male PATIENT RELEVANT IMPLANT DATA REVIEWED: Not Applicable RADIOLOGY DEPARTMENT: General X-ray: Exam(s) Completed: Lower Extremity X-Ray(s): Ankle, Right PERIPHERAL IV DATA: Not applicable SIGNED BY: RT Alisha(Bree) August 31, 2021 9:51 PM documented in this encounter [facility] 04-03-2021 Note HNO ID: [id number] Author: LORENA Nunez) Service: ? Author Type: Technologist Type: Progress Notes Filed: 04/03/2021 3:26 PM Note Text: Radiology Service Progress Note PATIENT NAME: Josselin Crockett DATE OF SERVICE: April 03, 2021 TIME: 3:25 PM PATIENT IDENTITY VERIFICATION COMPLETED USING TWO (2) IDENTIFIERS: Name and Date of confirmed by patient verbally. FALL SCREENING: Has the patient had 2 falls in the last year or 1 fall with injury or currently using an Ambulatory Assistive Device (Walker, Cane, Wheelchair, Crutches, etc.)? Emergency Room Patient: Screened in ED PATIENT GENDER DATA: Male PATIENT RELEVANT IMPLANT DATA REVIEWED: Not Applicable RADIOLOGY DEPARTMENT: General X-ray: Exam(s) Completed: Upper Extremity X-Ray(s): Shoulder, AP / TRUE AP / AXILLARY / SUPRA OUTLET left and Forearm, left PERIPHERAL IV DATA: Not applicable SIGNED BY: RT Mayra(Bree) April 03, 2021 3:25 PM [facility] Evaluation note Diagnosis Sprain of anterior talofibular ligament of right ankle, initial encounter [facility] Sprain of anterior talofibular ligament of right ankle, initial encounter- Primary Peroneal tendinitis of right lower extremity Other enthesopathy of ankle and tarsus [facility] Acute right ankle pain documented in this encounter [facility] for referral (narrative)* Diagnostic Procedure Only (Routine) - Closed Specialty Diagnoses / Procedures Referred By Kiel shafer Referred To Contact XR IMAGING Diagnoses Sprain of anterior talofibular ligament of right ankle, initial encounter Procedures XR ANKLE GENERAL 3V AP/LAT/OBL RIGHT RADEX ANKLE COMPLETE MINIMUM 3 VIEWS Branden Bernard DO [address] [place] [address] Xr Imaging Referral ID Status Reason Start Date Expiration Date V isits Requested Visits Authorized [id number] Closed Auto-Generate d Referral 09/03/2021 10/03/2022 1 1 [facility] for visit Narrative* Diagnostic Procedure Only (Routine) - Closed Specialty Diagnoses / Procedures Referred By Kiel shafer Referred To Contact XR IMAGING Diagnoses Sprain of anterior talofibular ligament of right ankle, initial encounter Procedures XR ANKLE GENERAL 3V AP/LAT/OBL RIGHT RADEX ANKLE COMPLETE MINIMUM 3 VIEWS Branden Bernard DO [address] [place] [address] Xr Imaging Referral ID Status Reason Start Date Expiration Date V isits Requested Visits Authorized [id number] Closed Auto-Generate d Referral 09/03/2021 10/03/2022 1 1 [facility] Summary Purpose Family History No Family History Records FoundNo Family History Records FoundNo Family History Records FoundNo Family History Records FoundNo Family History Records Found Advance Directives No Advanced Directives Records FoundDocuments on File Type Date Recorded Patient Television Technician Expl anation Advance Directive(s) 08/31/2021 9:40 PM Advance Directive(s) 04/03/2021 3:47 PM Advance Directive(s) 09/27/2020 1:53 PM Advance Directive(s) 05/13/2020 12:48 PM Advance Directive(s) 01/14/2020 10:50 PM Advance Directive(s) 10/06/2019 11:54 PM Advance Directive(s) 01/14/2018 2:33 PM Advance Directive(s) 01/08/2018 9:10 PM Advance Directive(s) 09/06/2017 9:49 AM Documents on File Type Date Recorded Patient Television Technician Expl anation Advance Directive(s) 08/31/2021 9:40 PM Advance Directive(s) 04/03/2021 3:47 PM Advance Directive(s) 09/27/2020 1:53 PM Advance Directive(s) 05/13/2020 12:48 PM Advance Directive(s) 01/14/2020 10:50 PM Advance Directive(s) 10/06/2019 11:54 PM Advance Directive(s) 01/14/2018 2:33 PM Advance Directive(s) 01/08/2018 9:10 PM Advance Directive(s) 09/06/2017 9:49 AM Reason for Referral Specialty Diagnoses / Procedures Referred By Contac t Referred To Contact [facility] Diagnoses Sprain of anterior talofibular ligament of right ankle, initial encounter Peroneal tendinitis of right lower extremity Procedures CONSULT TO PHYSICAL THERAPY PHYSICAL THERAPY EVALUATION HIGH COMPLEX 45 MINS Branden Bernard DO [facility] [place] [address] [place] [place] [address] Referral ID Status Reason Start Date Expiration Date Visits Requested Visits Authorized [id number] Authorized Auto-Generat ed Referral 09/03/2021 04/25/2022 1 1 Specialty Diagnoses / Procedures Referred By Contsanya t Referred To Contact XR IMAGING Diagnoses Sprain of anterior talofibular ligament of right ankle, initial encounter Procedures XR ANKLE GENERAL 3V AP/LAT/OBL RIGHT RADEX ANKLE COMPLETE MINIMUM 3 VIEWS Branden Bernard DO [facility] [place] [address] Xr Imaging Referral ID Status Reason Start Date Expiration Date V isits Requested Visits Authorized [id number] Closed Auto-Generate d Referral 09/03/2021 10/03/2022 1 1 Specialty Diagnoses / Procedures Referred By Contac t Referred To Contact MR IMAGING Diagnoses Acute right ankle pain Procedures MRI ANKLE WO IVCON RT MRI ANY JT LOWER EXTREM W/O CONTRAST Branden Montague DO [address] [place] [address] Mr Imaging Referral ID Status Reason Start Date Expiration Date V isits Requested Visits Authorized [id number] Closed Auto-Generate d Referral 09/09/2021 11/10/2021 1 1 Additional Source Comments (unrecognized sect ion and content) No Status Records FoundNo Status Records FoundNo Status Records FoundNo Status Records FoundNo Status Records Found INFORMATION SOURCE (unrecogn ized section and content) DATE CREATED AUTHOR 03/31/[address] [facility] DATE CREATED AUTHOR AUTHOR'S ORGANIZ ATION 05/19/2020 [facility] DATE CREATED AUTHOR AUTHOR'S ORGANIZ ATION 05/24/2020 [facility] DATE CREATED AUTHOR AUTHOR'S ORGANIZ ATION 10/03/2021 [facility] DATE CREATED AUTHOR AUTHOR'S ORGANIZ ATION 05/15/2024 [facility] Source Comments (unrecognize d section and content) In the event this informatio n is protected by the Federal Confidentiality of Alcohol and Drug Abuse Patient Records regulations: The Federal rules restrict any use of the information to criminally investigate or prosecute any alcohol or drug abuse patient.[facility] the event this information is protected by the Federal Confidentiality of Alcohol and Drug Abuse Patient Records regulations: The Federal rules restrict any use of the information to criminally investigate or prosecute any alcohol or drug abuse patient.[facility] the event this information is protected by the Federal Confidentiality of Alcohol and Drug Abuse Patient Records regulations: The Federal rules restrict any use of the information to criminally investigate or prosecute any alcohol or drug abuse patient.[facility] the event this information is protected by the Federal Confidentiality of Alcohol and Drug Abuse Patient Records regulations: The Federal rules restrict any use of the information to criminally investigate or prosecute any alcohol or drug abuse patient.[facility] the event this information is protected by the Federal Confidentiality of Alcohol and Drug Abuse Patient Records regulations: The Federal rules restrict any use of the information to criminally investigate or prosecute any alcohol or drug abuse patient.[facility] the event this information is protected by the Federal Confidentiality of Alcohol and Drug Abuse Patient Records regulations: The Federal rules restrict any use of the information to criminally investigate or prosecute any alcohol or drug abuse patient.[facility] the event this information is protected by the Federal Confidentiality of Alcohol and Drug Abuse Patient Records regulations: The Federal rules restrict any use of the information to criminally investigate or prosecute any alcohol or drug abuse patient.[facility] Reason for Visit (unrecogniz ed section and content) Reason Comments Radio Gen RMP Reason Comments Patient Update Reason Comments New Pain Specialty Diagnoses / Procedures Referred By Contac t Referred To Contact MR IMAGING Diagnoses Acute right ankle pain Procedures MRI ANKLE WO IVCON RT MRI ANY JT LOWER EXTREM W/O CONTRAST Branden Montague, [address] [id number] Mr Imaging Referral ID Status Reason Start Date Expiration Date V isits Requested Visits Authorized [id number] Closed Auto-Generate d Referral 09/09/2021 11/10/2021 1 1 Reason Comments Abdominal Pain FOR RECORDS PERTAINING TO PATIENTS WHO ARE OR HAVE BEEN ENROLLED IN A CHEMICAL DEPENDENCY/SUBSTANCEABUSE PROGRAM, SOME INFORMATION MAY BE OMITTED. This clinical summary was aggregated from multiple sources. Caution should be exercised in using it in the provision of clinical care. This summary normalizes information from multiple sources, and as a consequence, information in this document may materially change the coding, format and clinical context of patient data. In addition, data may be omitted in some cases. CLINICAL DECISIONS SHOULD BE BASED ON THE PRIMARY CLINICAL RECORDS. [facility] [employer] [facility]. provides no warranty or guarantee of the accuracy or completeness of information in this document.
== END 2025-03-16 20:16 | disposition home or self-care (01) ==
LOC: ED 20:12
PROVIDERS: Emergency Provider Emergency Medicine; Visit Provider Emergency Medicine
DX: Z53.21 Procedure and treatment not carried out due to patient leaving prior to being seen by health care provider (principal)
CPT/HCPCS: 99282